=== PATIENT | female | born 1955 | race Caucasian/White ===

== ENCOUNTER 2017-05-18 17:22 | Inpatient (IN) ==
[2017-05-18] MEDS ORDERED: 0.9 % Sodium Chloride 1,000 ML IVC ONE ×3 (17:42→19:13)
[2017-05-18] MEDS ORDERED: *HR* FentaNYL (PF) 100 MCG/2 ML VIAL IVP ONE ×3 (17:42→21:33)
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
[2017-05-18 18:16] LABS: Basophils % 0.2 %; Hematocrit 41.6 % (35.3-44.9); Immature Granulocytes % 0.2 % (0-4); Lymphocytes # 1.6 K/mcL (0.6-4.6); Mean Corpuscular HGB Conc 33.7 g/dL (31.6-35.5); Mean Corpuscular Hemoglobin 30.4 pg (28.0-33.3); Mean Corpuscular Volume 90.4 fL (83.0-100.0); Mean Platelet Volume 10.3 fL (9.4-12.4); Monocytes # 0.7 K/mcL (0.0-1.3); Monocytes % 4.1 %; Neutrophils # 14.9 K/mcL (1.6-8.9); Platelet Count 231 K/mcL (140-400); Red Cell Distribution Width 12.9 % (11.5-14.5); Segmented Neutrophils % 86.5 %
[2017-05-18 18:37] LABS: Calcium 9.3 mg/dL (8.6-10.8); Potassium 3.6 mEq/L (3.5-4.5)
--- NOTE | 2017-05-18 18:56 | Emergency Department Note ---
Disposition Clinical Impression: Shoulder pain Disposition: Still a Patient Referrals: NONE,PCP [Primary Care Provider] - General Adult HPI - General Chief complaint: ED Extremity Injury, Upper Stated complaint: R arm injury Time Seen by Provider: 05/18/17 17:29 Source: patient Mode of arrival: ambulatory Limitations: no limitations Nursing Notes Reviewed: Yes Vital Signs Reviewed: Yes - History of Present Illness HPI Narrative: 60-year-old female presenting with right arm pain. Patient reports that she has a long-standing history of right shoulder pain after multiple rotator cuff surgeries and shoulder replacements. States that she helped pick someone up off the ground yesterday and started getting pain. Also complaining of a red, swollen arm. Denies any fever, but states it hurts a lot. Denies any chest pain, shortness breath, abdominal pain. States she wants x-rays and pain meds Pain Scale: 10 - Related Data Home Medications Medication Instructions Recorded Confirmed Acetaminophen/Butalbital/Caffe 1 each PO Q6HR 03/14/15 03/14/15 [Fioricet] Alprazolam [Xanax] 1 mg PO TID 03/14/15 03/14/15 Citalopram [CeleXA] 40 mg PO DAILY 03/14/15 03/14/15 Hydrocodone/Acetaminophen [[place] 1 tab PO Q6H PRN 03/14/15 03/14/15 5-325 Tablet] Lisinopril/Hydrochlorothiazide 1 each PO DAILY 03/14/15 03/14/15 [Zestoretic 10-12.5 mg Tablet] Previous Rx's Medication Instructions Recorded Naproxen [EC-Naprosyn] 500 mg PO BID #10 tablet. 02/20/16 Hydrocodone/Acetaminophen [[place] 1 tab PO Q6H PRN #5 tab 06/12/16 5-325 Tablet] Allergies Allergy/AdvReac Type Severity Reaction Status Date / Time No Known Drug Allergies Allergy See Verified 05/18/17 17:27 Comments All systems ED: reviewed and negative except as stated. Constitutional: Denies: fever Cardiovascular: Denies: chest pain Gastrointestinal: Denies: vomiting Musculoskeletal: Reports: as per HPI Neurological: Denies: headache Past Medical History - Past Medical History Attestation: Yes The following information was validated with the patient. Source: patient Medical history: Reports: COPD, hypertension, migraine Surgical history: Reports: hysterectomy Psychiatric history: Reports: anxiety, depression - Social History Smoking Status: Current every day smoker Smokeless Tobacco Status: No Alcohol use: Reports: none Drug use: Reports: none Physical Exam - General Limitations: no limitations General appearance: alert, in no apparent distress, anxious - Head Head exam: atraumatic, normocephalic, normal inspection - ENT ENT exam: normal exam, normal oropharynx, mucous membranes moist - Neck Neck exam: Present: normal inspection, full ROM, trachea midline - Chest Chest inspection: Present: normal inspection, symmetric chest wall rise - Respiratory Respiratory exam: Present: normal lung sounds bilaterally - Cardiovascular Cardiovascular exam: Present: regular rate, normal rhythm, normal heart sounds - Abdominal Exam Abdominal exam: Present: soft, Non-Tender. Absent: tenderness, distention, guarding, rebound, rigidity - Expanded Upper Extremity Exam Shoulder exam: Present: normal inspection, full ROM, tenderness, swelling, erythema Arm exam: Present: normal inspection, full ROM, tenderness, swelling, erythema Elbow exam: Present: normal inspection, full ROM, tenderness, swelling, erythema Forearm/Wrist exam: Present: normal inspection, full ROM Hand exam: Present: normal inspection, full ROM Vascular exam: Normal: capillary refill, radial pulse - Expanded Lower Extremity Exam Hip/Pelvis exam: Present: pelvis stable - Neurological Exam Neurological exam: Present: alert, oriented X3 - Psychiatric Psychiatric exam: Present: normal affect, normal mood - Skin Skin exam: Present: warm, dry, intact, normal color, erythema (R arm ) Course Course Narrative: 61 -year-old female with right shoulder pain with multiple cervical surgeries. Looks like it could be infected. We will CT with IV contrast and get labs. She will be signed out to the oncoming nighttime team, Dr. Wiggins and Connor Vital Signs Temperature 97.4 F L 05/18/17 17:24 Pulse Rate 106 05/18/17 17:24 Respiratory Rate 14 05/18/17 17:24 Blood Pressure 92/55 05/18/17 17:24 O2 Sat by Pulse Oximetry 99 05/18/17 17:24 Temperature 97.4 F L 05/18/17 17:24 Pulse Rate 95 05/18/17 18:16 Respiratory Rate 20 05/18/17 18:16 Blood Pressure 91/50 05/18/17 18:16 O2 Sat by Pulse Oximetry 94 05/18/17 18:16 Oxygen Delivery Oxygen Delivery Room Air Medical Decision Making - Lab Data Result diagrams: 05/18/17 18:08 05/18/17 18:08 Lab Results 05/18/17 05/18/17 05/18/17 Range/Units 18:08 18:08 18:08 WBC 17.2 H (4.3-11.1) K/mcL RBC 4.60 (3.82-4.97) M/mcL Hgb 14.0 (11.5-15.4) g/dL Hct 41.6 (35.3-44.9) % MCV 90.4 (83.0-100.0) fL MCH 30.4 (28.0-33.3) pg MCHC 33.7 (31.6-35.5) g/dL RDW 12.9 (11.5-14.5) % Plt Count 231 (140-400) K/mcL MPV 10.3 (9.4-12.4) fL Immature Gran % 0.2 (0-4) % Seg Neutrophils % 86.5 % Lymphocytes % 9.0 % Monocytes % 4.1 % Eosinophils % 0.0 % Basophils % 0.2 % Neutrophils # 14.9 H (1.6-8.9) K/mcL Lymphocytes # 1.6 (0.6-4.6) K/mcL Monocytes # 0.7 (0.0-1.3) K/mcL Eosinophils # 0.0 (0.0-0.6) K/mcL Basophils # 0.0 (0.0-0.2) K/mcL ESR 56 H (0-15) mm/hr Sodium 136 (136-145) mEq/L Potassium 3.6 (3.5-4.5) mEq/L Chloride 96 L (98-109) mEq/L Carbon Dioxide 26 (19-29) mEq/L BUN 38 H (7-20) mg/dL Creatinine 3.56 H (0.57-1.11) mg/dL Est GFR ( Amer) 16 L (> 60) Est GFR (Non-Af Amer) 13 L (> 60) BUN/Creatinine Ratio 11 (6-26) Glucose 105 H (70-99) mg/dL Calculated Osmolality 291 (280-300) Lactic Acid (0.5-2.2) mmol/L Calcium 9.3 (8.6-10.8) mg/dL C-Reactive Protein 173 H (Less than 5) mg/L 05/18/17 Range/Units 18:08 WBC (4.3-11.1) K/mcL RBC (3.82-4.97) M/mcL Hgb (11.5-15.4) g/dL Hct (35.3-44.9) % MCV (83.0-100.0) fL MCH (28.0-33.3) pg MCHC (31.6-35.5) g/dL RDW (11.5-14.5) % Plt Count (140-400) K/mcL MPV (9.4-12.4) fL Immature Gran % (0-4) % Seg Neutrophils % % Lymphocytes % % Monocytes % % Eosinophils % % Basophils % % Neutrophils # (1.6-8.9) K/mcL Lymphocytes # (0.6-4.6) K/mcL Monocytes # (0.0-1.3) K/mcL Eosinophils # (0.0-0.6) K/mcL Basophils # (0.0-0.2) K/mcL ESR (0-15) mm/hr Sodium (136-145) mEq/L Potassium (3.5-4.5) mEq/L Chloride (98-109) mEq/L Carbon Dioxide (19-29) mEq/L BUN (7-20) mg/dL Creatinine (0.57-1.11) mg/dL Est GFR ( Amer) (> 60) Est GFR (Non-Af Amer) (> 60) BUN/Creatinine Ratio (6-26) Glucose (70-99) mg/dL Calculated Osmolality (280-300) Lactic Acid 1.5 (0.5-2.2) mmol/L Calcium (8.6-10.8) mg/dL C-Reactive Protein (Less than 5) mg/L
--- NOTE | 2017-05-18 19:40 | Emergency Department Note ---
Disposition Clinical Impression: STACY (acute kidney injury) Shoulder pain Qualifiers: Chronicity: acute Laterality: right Qualified Code(s): M25.511 - Pain in right shoulder Sepsis Qualifiers: Sepsis type: sepsis due to unspecified organism Qualified Code(s): A41.9 - Sepsis, unspecified organism Disposition: Admitted As Inpatient Condition: Undetermined Time of Disposition: 21:28 Extremity Problem HPI - General Chief complaint: ED Extremity Injury, Upper Stated complaint: R arm injury Time Seen by Provider: 05/18/17 17:29 Source: patient Mode of arrival: ambulatory Limitations: no limitations Nursing Notes Reviewed: Yes Vital Signs Reviewed: Yes - History of Present Illness HPI Narrative: 61-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 emergency department with concern for right upper extremity pain. The patient has had numerous of her shoulders as well as to her right shoulder unknown last one. Patient states that has been experiencing right upper shoulder pain after feeling a pop after lifting her family member. The patient denies any abdominal pain, chest pain, or urinary symptoms. Patient is noted to have a leukocytosis in the mildly hypotensive with a systolic blood pressure in the low 90s. The patient is mentating appropriately answer questions. She was received 3 L IV fluids and workup is still pending. Pt Subjective Complaint: extremity pain Consistency: constant, Worsening Injury Location: right, upper extremity Pain Scale: 10 Quality: burning Radiation: none Improves with: nothing Worsens with: nothing Associated symptoms: Reports: myalgias - Related Data Home Medications Medication Instructions Recorded Confirmed Acetaminophen/Butalbital/Caffe 1 each PO Q6HR 03/14/15 03/14/15 [Fioricet] Alprazolam [Xanax] 1 mg PO TID 03/14/15 03/14/15 Citalopram [CeleXA] 40 mg PO DAILY 03/14/15 03/14/15 Hydrocodone/Acetaminophen [[place] 1 tab PO Q6H PRN 03/14/15 03/14/15 5-325 Tablet] Lisinopril/Hydrochlorothiazide 1 each PO DAILY 03/14/15 03/14/15 [Zestoretic 10-12.5 mg Tablet] Previous Rx's Medication Instructions Recorded Naproxen [EC-Naprosyn] 500 mg PO BID #10 tablet. 02/20/16 Hydrocodone/Acetaminophen [[place] 1 tab PO Q6H PRN #5 tab 06/12/16 5-325 Tablet] Allergies Allergy/AdvReac Type Severity Reaction Status Date / Time No Known Drug Allergies Allergy See Verified 05/18/17 17:27 Comments All systems ED: reviewed and negative except as stated. Constitutional: Denies: fever Cardiovascular: Denies: chest pain Gastrointestinal: Denies: vomiting Musculoskeletal: Reports: as per HPI, arthralgia, myalgia Integumentary: Denies: rash Neurological: Denies: headache Past Medical History - Past Medical History Attestation: Yes The following information was validated with the patient. Source: patient Medical history: Reports: COPD, hypertension, migraine Surgical history: Reports: hysterectomy, orthopedic, other (Right shoulder) Psychiatric history: Reports: anxiety, depression - Social History Smoking Status: Current every day smoker Smokeless Tobacco Status: No Alcohol use: Reports: none Drug use: Reports: none Physical Exam Breast examination was performed due to a left axillary node on CT scan. Demonstrated no abnormalities on palpation of the left breast tissue. Left axillary node was palpated. - General Limitations: no limitations General appearance: alert, in no apparent distress, anxious - Head Head exam: atraumatic, normocephalic, normal inspection - Eye Eye exam: Present: normal appearance - ENT ENT exam: normal exam, normal oropharynx, mucous membranes moist - Neck Neck exam: Present: normal inspection - Chest Chest inspection: Present: normal inspection, symmetric chest wall rise - Respiratory Respiratory exam: Present: other (Coarse breath sounds) - Cardiovascular Cardiovascular exam: Present: normal rhythm, tachycardia, normal heart sounds - Abdominal Exam Abdominal exam: Present: soft, Non-Tender. Absent: tenderness, distention, guarding, rebound, rigidity - Extremities Exam Extremities exam: Present: full ROM, tenderness (Right shoulder and radiating distally with erythema associated with this. She has numerous scars associated with previous surgeries.) Course - Consultations Consultation #1: I spoke with Dr. Govea in orthopedics surgery after we received the results of further workup for patient's findings here in the emergency department. He had no further recommendations other than admit to the hospital service and he will see the patient. He agreed to plan of antibiotic care. Time: 21:14 Vital Signs Temperature 97.4 F L 05/18/17 17:24 Pulse Rate 106 05/18/17 17:24 Respiratory Rate 14 05/18/17 17:24 Blood Pressure 92/55 05/18/17 17:24 O2 Sat by Pulse Oximetry 99 05/18/17 17:24 Temperature 97.9 F 05/19/17 03:51 Pulse Rate 87 05/19/17 03:51 Respiratory Rate 17 05/19/17 03:51 Blood Pressure 93/54 05/19/17 03:51 O2 Sat by Pulse Oximetry 96 05/19/17 03:51 Oxygen Delivery Oxygen Delivery Room Air Extremity Problem, Nontraumati - MDM Narrative Medical decision making narrative: Workup here in the emergency department demonstrates a leukocytosis as well as an elevated CRP and ESR. Without any other etiology of the patient's pain, I am concerned about a infection of the patient's hardware. The patient was started on vancomycin and Zosyn. The patient will be admitted to the hospitalist service per Dr. Govea in orthopedics surgery. In addition and the patient does have a new AK I according to the patient. I do not have any previous renal function here at [facility] lab but I would go ahead and treat the patient has an STACY. We will admit the patient to the hospitalist service at this time. Accepted by Dr. Arnold. Humerus X-Ray 05/18/17 17:41 IMPRESSION: 1. No significant change compared to prior study. 2. 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 Stable lucency surrounding the humeral stem component, with a slightly expansile component surrounding the distal tip. Overall findings could represent sequela of loosening versus particle disease. Findings are grossly unchanged from the prior study 3. Otherwise no definite acute fracture subluxation identified. D/ / 05/18/2017 18:19:23 Henry Peng MD / bcarter Interpreting Provider: Henry Peng MD Shoulder X-Ray 05/18/17 17:41 IMPRESSION: 1. No significant change compared to prior study. 2. 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 Stable lucency surrounding the humeral stem component, with a slightly expansile component surrounding the distal tip. Overall findings could represent sequela of loosening versus particle disease. Findings are grossly unchanged from the prior study 3. Otherwise no definite acute fracture subluxation identified. D/ / 05/18/2017 18:19:23 Henry Peng MD / melanie Interpreting Provider: Henry Peng MD Upper Extremity CT 05/18/17 17:41 IMPRESSION: 1. Status post reverse ball and socket right total shoulder arthroplasty with mildly eccentrically located distal humeral component with surrounding lucency compatible with chronic loosening distally. These findings are not significantly changed when compared with previous exams. Of note there was a remote fracture at this site as seen on prior radiograph from May 01, 2014. The fracture has healed. No acute periprosthetic fracture identified. 2. Within limits of the exam no organized subcutaneous fluid collection identified. Only minimal subcutaneous stranding. 3. Nonspecific mildly enlarged and partially calcified left axillary lymph nodes. Recommend correlation for any known breast malignancy as well as correlation with recent mammography to exclude the possibility of underlying malignancy. 4. Osteopenia. D/ / Osman Alva MD / Osman Alva MD Interpreting Provider: Osman Alva MD Chest X-Ray 05/18/17 18:52 IMPRESSION: No acute cardiopulmonary disease. D/ / José Miguel Pollock MD / José Miguel Pollock MD Interpreting Provider: José Miguel Pollock MD - Lab Data Lab results reviewed: Yes I reviewed the patient's lab results. Result diagrams: 05/19/17 03:39 05/19/17 03:39 Lab Results 05/18/17 05/18/17 05/18/17 Range/Units 18:08 18:08 18:08 WBC 17.2 H (4.3-11.1) K/mcL RBC 4.60 (3.82-4.97) M/mcL Hgb 14.0 (11.5-15.4) g/dL Hct 41.6 (35.3-44.9) % MCV 90.4 (83.0-100.0) fL MCH 30.4 (28.0-33.3) pg MCHC 33.7 (31.6-35.5) g/dL RDW 12.9 (11.5-14.5) % Plt Count 231 (140-400) K/mcL MPV 10.3 (9.4-12.4) fL Immature Gran % 0.2 (0-4) % Seg Neutrophils % 86.5 % Lymphocytes % 9.0 % Monocytes % 4.1 % Eosinophils % 0.0 % Basophils % 0.2 % Neutrophils # 14.9 H (1.6-8.9) K/mcL Lymphocytes # 1.6 (0.6-4.6) K/mcL Monocytes # 0.7 (0.0-1.3) K/mcL Eosinophils # 0.0 (0.0-0.6) K/mcL Basophils # 0.0 (0.0-0.2) K/mcL ESR 56 H (0-15) mm/hr PT (9.4-12.1) Seconds INR APTT (26.0-36.0) Seconds Sodium 136 (136-145) mEq/L Potassium 3.6 (3.5-4.5) mEq/L Chloride 96 L (98-109) mEq/L Carbon Dioxide 26 (19-29) mEq/L BUN 38 H (7-20) mg/dL Creatinine 3.56 H (0.57-1.11) mg/dL Est GFR ( Amer) 16 L (> 60) Est GFR (Non-Af Amer) 13 L (> 60) BUN/Creatinine Ratio 11 (6-26) Glucose 105 H (70-99) mg/dL Calculated Osmolality 291 (280-300) Lactic Acid (0.5-2.2) mmol/L Calcium 9.3 (8.6-10.8) mg/dL Phosphorus (2.3-4.7) mg/dL Magnesium (1.6-2.6) mg/dL Total Bilirubin (0.2-1.2) mg/dL Direct Bilirubin (0.0-0.5) mg/dL Indirect Bilirubin (0.0-1.2) mg/dL AST (5-34) Units/L ALT (0-55) Units/L Alkaline Phosphatase (38-126) Units/L Troponin I (0-0.03) ng/mL C-Reactive Protein 173 H (Less than 5) mg/L Serum Total Protein (6.0-8.3) g/dL Albumin (3.5-5.0) g/dL Globulin (2.4-3.5) g/dL Albumin/Globulin Ratio (1.1-2.2) Urine Color (Yellow) Urine Clarity (Clear) Urine pH (5.0-8.0) pH Units Ur Specific [place] (1.010-1.025) Urine Protein (Neg-Trace) mg/dL Urine Glucose (UA) (Normal) mg/dL Urine Ketones (Negative) mg/dL Urine Blood (Negative) Urine Nitrite (Negative) Urine Bilirubin (Negative) Urine Urobilinogen (Normal) mg/dL Ur Leukocyte Esterase (Negative) Urine Microscopic RBC (0-3) per hpf Urine Microscopic WBC (0-3) per hpf Ur Squamous Epith Cells (None-Few) per lpf Ur Renal Epithelial Cell (None-Few) per hpf Urine Bacteria (None-Few) per hpf Hyaline Casts (None-Few) per lpf WBC Casts (None Seen) per lpf Urine Mucus (Few) Urine Yeast (None Seen) per hpf Ur Culture Indicated? (NO) 05/18/17 05/18/17 05/18/17 Range/Units 18:08 20:06 20:06 WBC (4.3-11.1) K/mcL RBC (3.82-4.97) M/mcL Hgb (11.5-15.4) g/dL Hct (35.3-44.9) % MCV (83.0-100.0) fL MCH (28.0-33.3) pg MCHC (31.6-35.5) g/dL RDW (11.5-14.5) % Plt Count (140-400) K/mcL MPV (9.4-12.4) fL Immature Gran % (0-4) % Seg Neutrophils % % Lymphocytes % % Monocytes % % Eosinophils % % Basophils % % Neutrophils # (1.6-8.9) K/mcL Lymphocytes # (0.6-4.6) K/mcL Monocytes # (0.0-1.3) K/mcL Eosinophils # (0.0-0.6) K/mcL Basophils # (0.0-0.2) K/mcL ESR (0-15) mm/hr PT 12.2 H (9.4-12.1) Seconds INR 1.1 APTT 16.6 L (26.0-36.0) Seconds Sodium (136-145) mEq/L Potassium (3.5-4.5) mEq/L Chloride (98-109) mEq/L Carbon Dioxide (19-29) mEq/L BUN (7-20) mg/dL Creatinine (0.57-1.11) mg/dL Est GFR ( Amer) (> 60) Est GFR (Non-Af Amer) (> 60) BUN/Creatinine Ratio (6-26) Glucose (70-99) mg/dL Calculated Osmolality (280-300) Lactic Acid 1.5 (0.5-2.2) mmol/L Calcium (8.6-10.8) mg/dL Phosphorus 4.9 H (2.3-4.7) mg/dL Magnesium 1.4 L (1.6-2.6) mg/dL Total Bilirubin 0.3 (0.2-1.2) mg/dL Direct Bilirubin 0.2 (0.0-0.5) mg/dL Indirect Bilirubin 0.1 (0.0-1.2) mg/dL AST 26 (5-34) Units/L ALT 41 (0-55) Units/L Alkaline Phosphatase 77 (38-126) Units/L Troponin I (0-0.03) ng/mL C-Reactive Protein (Less than 5) mg/L Serum Total Protein 6.2 (6.0-8.3) g/dL Albumin 2.8 L (3.5-5.0) g/dL Globulin 3.4 (2.4-3.5) g/dL Albumin/Globulin Ratio 0.8 L (1.1-2.2) Urine Color (Yellow) Urine Clarity (Clear) Urine pH (5.0-8.0) pH Units Ur Specific [place] (1.010-1.025) Urine Protein (Neg-Trace) mg/dL Urine Glucose (UA) (Normal) mg/dL Urine Ketones (Negative) mg/dL Urine Blood (Negative) Urine Nitrite (Negative) Urine Bilirubin (Negative) Urine Urobilinogen (Normal) mg/dL Ur Leukocyte Esterase (Negative) Urine Microscopic RBC (0-3) per hpf Urine Microscopic WBC (0-3) per hpf Ur Squamous Epith Cells (None-Few) per lpf Ur Renal Epithelial Cell (None-Few) per hpf Urine Bacteria (None-Few) per hpf Hyaline Casts (None-Few) per lpf WBC Casts (None Seen) per lpf Urine Mucus (Few) Urine Yeast (None Seen) per hpf Ur Culture Indicated? (NO) 05/18/17 05/18/17 05/18/17 Range/Units 20:06 20:06 20:43 WBC (4.3-11.1) K/mcL RBC (3.82-4.97) M/mcL Hgb (11.5-15.4) g/dL Hct (35.3-44.9) % MCV (83.0-100.0) fL MCH (28.0-33.3) pg MCHC (31.6-35.5) g/dL RDW (11.5-14.5) % Plt Count (140-400) K/mcL MPV (9.4-12.4) fL Immature Gran % (0-4) % Seg Neutrophils % % Lymphocytes % % Monocytes % % Eosinophils % % Basophils % % Neutrophils # (1.6-8.9) K/mcL Lymphocytes # (0.6-4.6) K/mcL Monocytes # (0.0-1.3) K/mcL Eosinophils # (0.0-0.6) K/mcL Basophils # (0.0-0.2) K/mcL ESR (0-15) mm/hr PT (9.4-12.1) Seconds INR APTT (26.0-36.0) Seconds Sodium (136-145) mEq/L Potassium (3.5-4.5) mEq/L Chloride (98-109) mEq/L Carbon Dioxide (19-29) mEq/L BUN (7-20) mg/dL Creatinine (0.57-1.11) mg/dL Est GFR ( Amer) (> 60) Est GFR (Non-Af Amer) (> 60) BUN/Creatinine Ratio (6-26) Glucose (70-99) mg/dL Calculated Osmolality (280-300) Lactic Acid 1.8 (0.5-2.2) mmol/L Calcium (8.6-10.8) mg/dL Phosphorus (2.3-4.7) mg/dL Magnesium (1.6-2.6) mg/dL Total Bilirubin (0.2-1.2) mg/dL Direct Bilirubin (0.0-0.5) mg/dL Indirect Bilirubin (0.0-1.2) mg/dL AST (5-34) Units/L ALT (0-55) Units/L Alkaline Phosphatase (38-126) Units/L Troponin I 0.01 (0-0.03) ng/mL C-Reactive Protein (Less than 5) mg/L Serum Total Protein (6.0-8.3) g/dL Albumin (3.5-5.0) g/dL Globulin (2.4-3.5) g/dL Albumin/Globulin Ratio (1.1-2.2) Urine Color Dark Yellow (Yellow) Urine Clarity Cloudy A (Clear) Urine pH 6.0 (5.0-8.0) pH Units Ur Specific [place] 1.024 (1.010-1.025) Urine Protein 30 H (Neg-Trace) mg/dL Urine Glucose (UA) Normal (Normal) mg/dL Urine Ketones Negative (Negative) mg/dL Urine Blood Negative (Negative) Urine Nitrite Negative (Negative) Urine Bilirubin Small H (Negative) Urine Urobilinogen Normal (Normal) mg/dL Ur Leukocyte Esterase Negative (Negative) Urine Microscopic RBC 3-5 H (0-3) per hpf Urine Microscopic WBC 30-50 H (0-3) per hpf Ur Squamous Epith Cells Many H (None-Few) per lpf Ur Renal Epithelial Cell Few (None-Few) per hpf Urine Bacteria Few (None-Few) per hpf Hyaline Casts Moderate H (None-Few) per lpf WBC Casts Few H (None Seen) per lpf Urine Mucus Few (Few) Urine Yeast Moderate H (None Seen) per hpf Ur Culture Indicated? NO (NO) - Radiology Data Radiology results reviewed: Yes I reviewed the patient's radiology results. - EKG Data EKG attestation: Yes I reviewed and interpreted this EKG. EKG results narrative: Heart rate 86 bpm. AK interval 195 ms. QTc 429 ms. Normal axis. Normal sinus rhythm. No ST elevation or ST depression noted. EKG similar appearance to EKG from 04/19/2013. Attestation Statement - Attestation Attestation: I examined this patient and my medical decision-making was reviewed with the Resident Physician. I agree with the documented findings, disposition and treatment plan as described except to the extent set forth below. Sepsis. Possibly related to previous shoulder repair. Chest x-ray, urinalysis shows no evidence of infection. Hemodynamics responded to IV fluid resuscitation. Broad -spectrum antibiotics were initiated. Discussed case on-call orthopedic surgeon. will admit for further evaluation. Patient stable at time of admission.
[2017-05-18] MEDS ORDERED: Piperacillin/Tazobactam 3.375 GM in D5% in Water 50 ML IVPB ONE (19:51)
[2017-05-18] MEDS ORDERED: Vancomycin 1,000 MG in D5% in Water 250 ML IVPB ONE (19:52)
[2017-05-18 20:23] LABS: INR 1.1; Prothrombin Time 12.2 Seconds (9.4-12.1)
[2017-05-18 20:32] LABS: Activated Partial Thrombo Time 16.6 Seconds (26.0-36.0)
[2017-05-18 20:34] LABS: Albumin 2.8 g/dL (3.5-5.0); Albumin/Globulin Ratio 0.8 (1.1-2.2); Bilirubin,Direct 0.2 mg/dL (0.0-0.5); Bilirubin,Indirect 0.1 mg/dL (0.0-1.2); Bilirubin,Total 0.3 mg/dL (0.2-1.2); Globulin 3.4 g/dL (2.4-3.5); Magnesium 1.4 mg/dL (1.6-2.6); Phosphorous 4.9 mg/dL (2.3-4.7); Total Protein 6.2 g/dL (6.0-8.3)
[2017-05-18 20:48] LABS: Bilirubin,Urine Small (Negative); Blood,Urine Negative (Negative); Clarity,Urine Cloudy (Clear); Color,Urine Dark Yellow (Yellow); Glucose,Urine (UA) Normal (Normal); Ketones,Urine Negative (Negative); Leukocyte Esterase,Urine Negative (Negative); Nitrite,Urine Negative (Negative); Protein,Urine 30 mg/dL (Neg-Trace); Specific Gravity,Urine 1.024 (1.010-1.025); Urobilinogen,Urine Normal (Normal)
[2017-05-18 20:50] LABS: Squamous Epithelial Cell,Urine Many per lpf (None-Few); WBC,Urine 30-50 per hpf (0-3)
[2017-05-18 21:07] LABS: Hyaline Casts,Urine Moderate per lpf (None-Few); Mucus,Urine Few (Few); Renal Epithelial Cells,Urine Few per hpf (None-Few); White Blood Cell Casts,Urine Few per lpf (None Seen)
[2017-05-18 21:08] LABS: Yeast,Urine Moderate per hpf (None Seen)
[2017-05-18 21:09] LABS: Bacteria,Urine Few per hpf (None-Few)
[2017-05-18] MEDS ORDERED: Ondansetron 4 MG/2 ML VIAL IVP PRN (22:43)
[2017-05-18] MEDS ORDERED: Naloxone 0.4 MG/ML INJ IVP PRN (22:43)
[2017-05-18] MEDS ORDERED: Vancomycin 1,000 MG in D5% in Water 250 ML IVPB SCH (23:00)
[2017-05-18] MEDS: 0.9 % Sodium Chloride 1,000 ML IVC SCH (23:08)
--- NOTE | 2017-05-18 23:52 | Internal Med History&Physical ---
Date of Encounter: 05/18/17 Time of Encounter: 21:00 Assessment and Plan (1) Sepsis Current visit: Yes Status: Acute Patient meets sepsis criteria with tachycardia and leukocytosis. Suspect hardware infection. - IV fluid resuscitation started from ER - Lactic acid level is not elevated - Continue Vanco and Zosyn - Follow blood culture results She is at high risk because she is on Vanco, need close monitoring Qualifiers: Sepsis type: sepsis due to unspecified organism Qualified Code(s): A41.9 - Sepsis, unspecified organism (2) Hypomagnesemia Current visit: Yes Status: Acute Will give supplement (3) Axillary adenopathy Current visit: Yes Status: Acute CT shows a left sided axillary adenopathy, recommend mammogram. Mammogram ordered. (4) UTI (urinary tract infection) Current visit: Yes Status: Acute Pt is on Vanco and Zosyn. Follow urine culture results Qualifiers: Urinary tract infection type: acute cystitis Hematuria presence: without hematuria Qualified Code(s): N30.00 - Acute cystitis without hematuria (5) Shoulder pain Current visit: Yes Status: Acute Etiology is undetermined. CT shoulder has been done, will further reviewed by orthopedics. Concern for hardware infection. Empirically started Vanco and Zosyn. Follow blood culture results. Pain medication as needed Qualifiers: Chronicity: acute Laterality: right Qualified Code(s): M25.511 - Pain in right shoulder (6) STACY (acute kidney injury) Current visit: Yes Status: Acute Patient has high creatinine level. No previous result can be compared. Patient is on NSAID as a home medication. - We will place patient on IV fluid - US renal to rule out hydronephrosis. - Check urine sodium, creatinine, potassium, chloride, and eosiniphils - Avoid nephrotoxic medication. Hold lisinopril and hydrochlorothiazide. - Follow renal function. - Probably need nephrology consult, nonurgent, day shift to call. (7) DVT prophylaxis Current visit: Yes Status: Acute Heparin subcutaneously Internal Medicine - H&P: HPI Chief complaint: Right arm pain Admitted From: Home Plans for Post Hospital Care: Home History of present illness: Ms. Silverman is a 61 year old female with no significant medical history except migraine and right shoulder surgery with hardware implant, present to ER for right arm pain. Patient had a surgery 4-5 years ago, has on and off chronic pain. Patient said yesterday morning, when she tried to help her stepfather, her stepfather sit on her right arm. Patient has extreme pain and limited range of movement. She came to ER for treatment. In ER, she was found leukocytosis, hardware infection was suspected by emergency room. Patient was started on Vanco and Zosyn. Orthopedic consult was called by ER. Patient was admitted for further management. Past Med Surg Social Fam HX - Past Medical History Medical history: COPD, hypertension, migraine Psychiatric history: anxiety, depression - Past Surgical History Surgical History: hysterectomy, orthopedic, other - Social History Smoking Status: Current every day smoker Packs per day: 1/2 Smokeless Tobacco Status: No Alcohol use: none Drug use: none - Family History Mother History Unknown: Yes Internal Medicine - H&P: Meds Acetaminophen/Butalbital/Caffe [Fioricet] 1 each PO Q6HR 03/14/15 [History] Alprazolam [Xanax] 1 mg PO TID 03/14/15 [History] Citalopram [CeleXA] 40 mg PO DAILY 03/14/15 [History] Hydrocodone/Acetaminophen [[place] 5-325 Tablet] 1 tab PO Q6H PRN 03/14/15 [ History] Lisinopril/Hydrochlorothiazide [Zestoretic 10-12.5 mg Tablet] 1 each PO DAILY [History] Naproxen [EC-Naprosyn] 500 mg PO BID #10 tablet. 02/20/16 [Rx] Hydrocodone/Acetaminophen [[place] 5-325 Tablet] 1 tab PO Q6H PRN #5 tab 06/12/16 [Rx] 3 Allergy/AdvReac Type Severity Reaction Status Date / Time No Known Drug Allergies Allergy See Verified 05/18/17 17:27 Comments All Systems PM: A 10-system review of systems was performed and is negative for pertinent findings except as documented above in the HPI. - Constitutional Vitals: Temp Pulse Resp BP Pulse Ox 97.7 F 94 17 93/44 98 05/18/17 22:59 05/18/17 22:59 05/18/17 22:59 05/18/17 22:59 05/18/17 22:59 General appearance: Present: mild distress, A&O X 3, answers questions appropriately - Head Head exam: Present: atraumatic, normocephalic - Eye Eye exam: Present: PERRL, conjuntiva pink, sclera anicteric Pupils: Present: PERRL - Neck Neck exam general surgery: Present: supple, trachea midline. Absent: lymphadenopathy - Respiratory Respiratory exam: Present: CTAB. Absent: accessory muscle use, rales, rhonchi, wheezes - Cardiovascular Cardiovascular exam: Present: RRR, +S1, +S2. Absent: diastolic murmur, gallop, rubs, systolic murmur - GI/Abdominal GI/Abdominal exam: Present: normal bowel sounds, soft, no peritoneal signs. Absent: distended, tenderness - Extremities Exam Extremities exam: Present: warm, radial pulses palpable and symmetrical. Absent : calf tenderness, cyanotic, pedal edema Additional comments: Right hamerus tenderness with limited ROM due to pain. - Neurological Exam Neurological exam: Present: CN II-XII intact, oriented X3, no focal deficits. Absent: pronater drift, facial droop, speech deficit - Skin Skin exam: Present: dry, intact Internal Med - H&P Results - Labs CBC & Chem 7: 05/18/17 18:08 05/18/17 18:08
[2017-05-18] MEDS ORDERED: Magnesium Sulfate 2 GM in D5% in Water 100 ML IVPB ONE (23:58)
[2017-05-19] MEDS: *HR* Morphine 2 MG/ML SYRINGE IVP PRN ×6 (00:55→22:13)
[2017-05-19] MEDS: Acetaminophen 325 MG TABLET PO PRN ×3 (02:58→22:54)
[2017-05-19 03:58] LABS: Potassium,Urine 23.8 mEq/L
[2017-05-19 04:06] LABS: Basophils % 0.2 %; Hematocrit 33.2 % (35.3-44.9); Immature Granulocytes % 0.4 % (0-4); Lymphocytes # 1.5 K/mcL (0.6-4.6); Lymphocytes % 11.8 %; Mean Corpuscular HGB Conc 33.4 g/dL (31.6-35.5); Mean Corpuscular Hemoglobin 30.5 pg (28.0-33.3); Mean Corpuscular Volume 91.2 fL (83.0-100.0); Mean Platelet Volume 10.5 fL (9.4-12.4); Monocytes # 0.8 K/mcL (0.0-1.3); Monocytes % 6.3 %; Neutrophils # 10.1 K/mcL (1.6-8.9); Platelet Count 146 K/mcL (140-400); Red Blood Count 3.64 M/mcL (3.82-4.97); Segmented Neutrophils % 81.3 %
[2017-05-19 04:07] LABS: Hemoglobin 11.1 g/dL (11.5-15.4)
[2017-05-19 04:17] LABS: Magnesium 2.3 mg/dL (1.6-2.6); Potassium 3.2 mEq/L (3.5-4.5)
[2017-05-19 04:19] LABS: Calcium 7.9 mg/dL (8.6-10.8)
[2017-05-19] MEDS: *HR* Heparin 5,000 UNIT/ML VIAL SQ SCH ×2 (06:21→17:59)
--- NOTE | 2017-05-19 07:55 | Orthopedic Consult Note ---
Date of Encounter: 05/19/17 Time of Encounter: 07:53 History of Present Illness HPI: Ms. Silverman is a 61 year old female Seen this morning for right arm pain. Patient admitted with elevated white count and ESR and CRP. Patient with a long history of multiple surgeries of the right arm last being a major reconstruction with almost complete replacement of her humerus. Physical exam patient awake and oriented Complains of pain right arm Right upper extremity Well-healed incisions No significant swelling No erythema Neurovascular intact Pain with motion X-rays reviewed show chronic nature of reconstruction unchanged from previous x- rays. CT scan shows no collection or abscess. Patient is responding to IV antibiotics would recommend continued IV antibiotics before proceeding with any major revision surgery since this would leave her with a flail arm. There are no new changes nor collection suggesting of new process or abscess. Patient's pain may be related to loose prosthesis. Past Med Surg Social Fam HX - Past Medical History Medical history: COPD, hypertension, migraine Psychiatric history: anxiety, depression - Past Surgical History Surgical History: hysterectomy, orthopedic, other (Right shoulder) - Social History Smoking Status: Current every day smoker Packs per day: 1/2 Smokeless Tobacco Status: No Alcohol use: none Drug use: none - Family History Mother History Unknown: Yes Medications and Allergies Acetaminophen/Butalbital/Caffe [Fioricet] 1 each PO Q6HR 03/14/15 [History] Alprazolam [Xanax] 1 mg PO TID 03/14/15 [History] Citalopram [CeleXA] 40 mg PO DAILY 03/14/15 [History] Hydrocodone/Acetaminophen [[place] 5-325 Tablet] 1 tab PO Q6H PRN 03/14/15 [ History] Lisinopril/Hydrochlorothiazide [Zestoretic 10-12.5 mg Tablet] 1 each PO DAILY [History] Naproxen [EC-Naprosyn] 500 mg PO BID #10 tablet. 02/20/16 [Rx] Hydrocodone/Acetaminophen [[place] 5-325 Tablet] 1 tab PO Q6H PRN #5 tab 06/12/16 [Rx] 3 Allergy/AdvReac Type Severity Reaction Status Date / Time No Known Drug Allergies Allergy See Verified 05/18/17 17:27 Comments All Systems Reviewed: A 10-system review of systems was performed and is negative for pertinent findings except as documented above in the HPI. Physical Exam - Constitutional Vitals: Temp Pulse Resp BP Pulse Ox 98.1 F 88 16 109/65 96 05/19/17 07:25 05/19/17 07:25 05/19/17 07:25 05/19/17 07:25 05/19/17 07:25 Results - Labs Result Diagrams: 05/19/17 03:39 05/19/17 03:39 Labs: Abnormal lab results WBC 12.5 K/mcL (4.3-11.1) H 05/19/17 03:39 RBC 3.64 M/mcL (3.82-4.97) L 05/19/17 03:39 Hgb 11.1 g/dL (11.5-15.4) L D 05/19/17 03:39 Hct 33.2 % (35.3-44.9) L 05/19/17 03:39 Neutrophils # 10.1 K/mcL (1.6-8.9) H 05/19/17 03:39 ESR 56 mm/hr (0-15) H 05/18/17 18:08 PT 12.2 Seconds (9.4-12.1) H 05/18/17 20:06 APTT 16.6 Seconds (26.0-36.0) L 05/18/17 20:06 Sodium 134 mEq/L (136-145) L 05/19/17 03:39 Potassium 3.2 mEq/L (3.5-4.5) L 05/19/17 03:39 BUN 33 mg/dL (7-20) H 05/19/17 03:39 Creatinine 2.17 mg/dL (0.57-1.11) H 05/19/17 03:39 Est GFR ( Amer) 28 (> 60) L 05/19/17 03:39 Est GFR (Non-Af Amer) 23 (> 60) L 05/19/17 03:39 Calcium 7.9 mg/dL (8.6-10.8) L D 05/19/17 03:39 Phosphorus 4.9 mg/dL (2.3-4.7) H 05/18/17 20:06 C-Reactive Protein 173 mg/L (Less than 5) H 05/18/17 18:08 Albumin 2.8 g/dL (3.5-5.0) L 05/18/17 20:06 Albumin/Globulin Ratio 0.8 (1.1-2.2) L 05/18/17 20:06 Urine Clarity Cloudy (Clear) A 05/18/17 20:43 Urine Protein 30 mg/dL (Neg-Trace) H 05/18/17 20:43 Urine Bilirubin Small (Negative) H 05/18/17 20:43 Urine Microscopic RBC 3-5 per hpf (0-3) H 05/18/17 20:43 Urine Microscopic WBC 30-50 per hpf (0-3) H 05/18/17 20:43 Ur Squamous Epith Cells Many per lpf (None-Few) H 05/18/17 20:43 Hyaline Casts Moderate per lpf (None-Few) H 05/18/17 20:43 WBC Casts Few per lpf (None Seen) H 05/18/17 20:43 Urine Yeast Moderate per hpf (None Seen) H 05/18/17 20:43 H & H 05/19/17 Range/Units 03:39 Hgb 11.1 L D (11.5-15.4) g/dL Hct 33.2 L (35.3-44.9) % All other labs normal. Consult Discharge Plan - Plan Referrals: NONE,PCP [Primary Care Provider] -
[2017-05-19] MEDS: Piperacillin/Tazobactam 3.375 GM in D5% in Water 50 ML IVPB SCH ×2 (10:23→20:29)
[2017-05-19] MEDS: ALPRAZolam 1 MG TABLET PO PRN ×2 (12:29→20:24)
--- NOTE | 2017-05-19 13:09 | Electrocardiograph Report ---
[place] [id number] Test Date: 2017-05-18 Pat Name: Em Silverman Department: 104 Room: 2A42 Gender: F [employer]el[employer]writer: SUBHASH : 1955 Requested By: Chacha Alaniz Order Number: [id number] Reading MD: Linda Monique Measurements Intervals [place] Rate: 86 P: 61 VA: 195 QRS: 47 QRSD: 90 T: 44 QT: 385 QTc: 429 Interpretive Statements SINUS RHYTHM DIFFUSE NONSPECIFIC ST ABNORMALITIES Electronically Signed On 05-19-2017 12:44:12 EST by Linda Monique
[2017-05-19] MEDS ORDERED: Vancomycin 1,000 MG in D5% in Water 250 ML IVPB ONE (13:15)
[2017-05-19] MEDS: *HR* HYDROcodone/Acet 5/325 mg TABLET PO PRN ×2 (14:23→20:24)
[2017-05-19] MEDS: 0.9 % Sodium Chloride 1,000 ML IVC SCH (14:29)
[2017-05-19] MEDS: Nicotine 21 MG PATCH.TD24 TD SCH (15:39)
--- NOTE | 2017-05-19 17:26 | Internal Med Progress Note ---
Date of Encounter: 05/19/17 Time of Encounter: 17:24 - Assessment and plan (1) Sepsis Current Visit: Yes Status: Acute Assessment and plan: Does meet sepsis criteria concerned for septic arthritis / hardware infection of rt shoulder ESR- 56, CRP-173 - significnatly elevated cont empirical abx Zosyn and Vanco Ortho on board..since her symptoms started improving Ortho recommend close monitoring Pt does need to stay in the hospital more than 2 nights, due to her complex medical problems and required IV abx, frequent IV pain medication. SO will change her to full admission. I did review my colleague Dr. Arnold's H & P including HPI, PMH, PSH, FH - reviewed no gout, no malignancy in the family, SH , ROS no changes noticed Qualifiers: Sepsis type: sepsis due to unspecified organism Qualified Code(s): A41.9 - Sepsis, unspecified organism (2) Shoulder pain Current Visit: Yes Status: Acute Assessment and plan: due to possible hardware inf cont empirical abx inc pain meds Qualifiers: Chronicity: acute Laterality: right Qualified Code(s): M25.511 - Pain in right shoulder (3) STACY (acute kidney injury) Current Visit: Yes Status: Acute Assessment and plan: Due to sepsis improving cont gentle IV fluids (4) DVT prophylaxis Current Visit: Yes Status: Acute Assessment and plan: on Heparin SQ (5) UTI (urinary tract infection) Current Visit: Yes Status: Acute Assessment and plan: on abx f/u on urine cx Qualifiers: Urinary tract infection type: acute cystitis Hematuria presence: without hematuria Qualified Code(s): N30.00 - Acute cystitis without hematuria (6) Swelling of joint, wrist, left Current Visit: Yes Status: Acute Assessment and plan: concerned for gout cont pain medication appreciate Ortho in put on this - Subjective Interval history: Ms. Silverman is a 61 year old female with no significant medical history except migraine and right shoulder surgery with hardware implant, present to ER for right arm pain. Patient had a surgery 4-5 years ago, has on and off chronic pain. Patient said yesterday morning, when she tried to help her stepfather, her stepfather sit on her right arm. Patient has extreme pain and limited range of movement. She came to ER for treatment. In ER, she was found leukocytosis, hardware infection was suspected by emergency room. Patient was started on Vanco and Zosyn. Pt stated she is feeling better now. However still in severe pain in Rt shoulder. No erythema / no swelling - Constitutional Vitals: Temp Pulse Resp BP Pulse Ox 98.1 F 86 17 127/64 95 05/19/17 16:48 05/19/17 16:48 05/19/17 16:48 05/19/17 16:48 05/19/17 16:48 General appearance: Present: mild distress (with pain), A&O X 3, answers questions appropriately - Head Head exam: Present: atraumatic, normal inspection - Neck Neck exam general surgery: Present: supple - Respiratory Respiratory exam: Present: decreased breath sounds. Absent: rales, respiratory distress, rhonchi, wheezes - Cardiovascular Cardiovascular exam: Present: RRR, +S1, +S2. Absent: diastolic murmur, gallop, rubs, systolic murmur - GI/Abdominal GI/Abdominal exam: Present: normal bowel sounds, soft. Absent: rebound, rigid, tenderness - Extremities Exam Extremities exam: Absent: calf tenderness, pedal edema, tenderness Additional comments: Severe pain in Rt shoulder.. No erythema / no redness.. chronic scars from previous surgeries Also noticed swelling over left wrist - Back Exam Back exam: Absent: CVA tenderness (L), CVA tenderness (R) - Neurological Exam Neurological exam: Present: alert, oriented X3 - Psychiatric Psychiatric exam: Present: normal affect, normal mood Internal Medicine: Result - Labs CBC & Chem 7: 05/19/17 03:39 05/19/17 03:39 Labs: Short CBC 05/19/17 Range/Units 03:39 WBC 12.5 H (4.3-11.1) K/mcL Hgb 11.1 L D (11.5-15.4) g/dL Hct 33.2 L (35.3-44.9) % Plt Count 146 (140-400) K/mcL Neutrophils # 10.1 H (1.6-8.9) K/mcL BMP 05/19/17 03:39 Sodium 134 L Potassium 3.2 L Chloride 104 Carbon Dioxide 21 BUN 33 H Creatinine 2.17 H Glucose 97 Calcium 7.9 L D - ABG Interpretation ABG results: PT/INR, D-dimer PT 12.2 Seconds (9.4-12.1) H 05/18/17 20:06 - Impressions Impressions Retroperitoneum Ultrasound 05/19/17 15:00 IMPRESSION: Unremarkable ultrasound of the kidneys. D/ / 05/19/2017 16:05:24 Daisy Sosa MD / luna Interpreting Provider: Daisy Sosa MD Consult Discharge Plan - Plan Referrals: Candelario Govea MD [Partnered Physician] - 05/27/17 8:55 am (Please follow up as schedule..)
[2017-05-19] MEDS ORDERED: 0.9 % Sodium Chloride 1,000 ML IVC SCH (17:45)
[2017-05-19] MEDS: Gabapentin 100 MG CAPSULE PO SCH (20:25)
[2017-05-20] MEDS: *HR* HYDROcodone/Acet 5/325 mg TABLET PO PRN ×5 (01:30→23:07)
[2017-05-20] MEDS: *HR* Morphine 2 MG/ML SYRINGE IVP PRN ×5 (04:01→20:26)
[2017-05-20] MEDS: *HR* Heparin 5,000 UNIT/ML VIAL SQ SCH ×2 (05:46→17:18)
[2017-05-20 06:21] LABS: Basophils % 0.1 %; Hematocrit 32.4 % (35.3-44.9); Hemoglobin 10.8 g/dL (11.5-15.4); Immature Granulocytes % 0.3 % (0-4); Lymphocytes # 1.3 K/mcL (0.6-4.6); Lymphocytes % 16.8 %; Mean Corpuscular HGB Conc 33.3 g/dL (31.6-35.5); Mean Corpuscular Hemoglobin 30.4 pg (28.0-33.3); Mean Corpuscular Volume 91.3 fL (83.0-100.0); Mean Platelet Volume 11.2 fL (9.4-12.4); Monocytes # 0.7 K/mcL (0.0-1.3); Monocytes % 8.8 %; Neutrophils # 5.9 K/mcL (1.6-8.9); Platelet Count 153 K/mcL (140-400); Red Blood Count 3.55 M/mcL (3.82-4.97); Red Cell Distribution Width 12.9 % (11.5-14.5)
[2017-05-20 06:28] LABS: BUN/Creatinine Ratio 19 (6-26); Calcium 8.6 mg/dL (8.6-10.8); Carbon Dioxide 24 mEq/L (19-29); Chloride 107 mEq/L (98-109); Glucose 87 mg/dL (70-99); Osmolality,Calculated 283 (280-300); Potassium 3.6 mEq/L (3.5-4.5); Sodium 137 mEq/L (136-145); eGFR For African Americans > 60 (> 60); eGFR For Non-African Americans > 60 (> 60)
[2017-05-20 06:29] LABS: Blood Urea Nitrogen 13 mg/dL (7-20)
[2017-05-20 06:55] LABS: C-Reactive Protein 118 mg/L (Less than 5)
[2017-05-20] MEDS: ALPRAZolam 1 MG TABLET PO PRN ×3 (08:50→20:25)
[2017-05-20] MEDS: Gabapentin 100 MG CAPSULE PO SCH ×3 (08:51→20:25)
[2017-05-20] MEDS: Nicotine 21 MG PATCH.TD24 TD SCH (08:59)
[2017-05-20] MEDS: Piperacillin/Tazobactam 3.375 GM in D5% in Water 50 ML IVPB SCH ×2 (09:01→15:38)
[2017-05-20] MEDS: Vancomycin 1,000 MG in D5% in Water 250 ML IVPB SCH ×2 (12:33→22:53)
[2017-05-20] MEDS: Acetaminophen 325 MG TABLET PO PRN (14:31)
[2017-05-21] MEDS: Piperacillin/Tazobactam 3.375 GM in D5% in Water 50 ML IVPB SCH ×3 (00:42→15:08)
[2017-05-21] MEDS: *HR* Morphine 2 MG/ML SYRINGE IVP PRN ×3 (00:45→09:08)
[2017-05-21] MEDS: *HR* HYDROcodone/Acet 5/325 mg TABLET PO PRN ×3 (03:59→19:53)
[2017-05-21] MEDS: *HR* Heparin 5,000 UNIT/ML VIAL SQ SCH ×2 (04:54→16:39)
[2017-05-21 05:15] LABS: Basophils % 0.3 %; Hemoglobin 10.9 g/dL (11.5-15.4); Immature Granulocytes % 0.1 % (0-4); Lymphocytes # 1.8 K/mcL (0.6-4.6); Lymphocytes % 25.3 %; Mean Corpuscular Hemoglobin 30.1 pg (28.0-33.3); Mean Corpuscular Volume 91.2 fL (83.0-100.0); Monocytes # 0.6 K/mcL (0.0-1.3); Monocytes % 9.2 %; Neutrophils # 4.5 K/mcL (1.6-8.9); Platelet Count 165 K/mcL (140-400); Red Blood Count 3.62 M/mcL (3.82-4.97); Red Cell Distribution Width 12.6 % (11.5-14.5); Segmented Neutrophils % 65.1 %
[2017-05-21 05:24] LABS: BUN/Creatinine Ratio 17 (6-26); Blood Urea Nitrogen 11 mg/dL (7-20); Calcium 8.7 mg/dL (8.6-10.8); Carbon Dioxide 28 mEq/L (19-29); Chloride 105 mEq/L (98-109); Glucose 89 mg/dL (70-99); Osmolality,Calculated 285 (280-300); Potassium 3.7 mEq/L (3.5-4.5); Sodium 138 mEq/L (136-145); eGFR For African Americans > 60 (> 60); eGFR For Non-African Americans > 60 (> 60)
[2017-05-21] MEDS: Nicotine 21 MG PATCH.TD24 TD SCH (07:58)
[2017-05-21] MEDS: Acetaminophen 325 MG TABLET PO PRN (07:59)
[2017-05-21] MEDS: ALPRAZolam 1 MG TABLET PO PRN ×3 (07:59→19:55)
[2017-05-21] MEDS: Gabapentin 100 MG CAPSULE PO SCH ×3 (08:00→19:53)
--- NOTE | 2017-05-21 11:28 | Internal Med Progress Note ---
Date of Encounter: 05/20/17 Time of Encounter: 11:25 - Assessment and plan (1) Shoulder pain Current Visit: Yes Status: Acute Assessment and plan: due to possible hardware inf cont empirical abx inc pain meds Qualifiers: Chronicity: acute Laterality: right Qualified Code(s): M25.511 - Pain in right shoulder (2) STACY (acute kidney injury) Current Visit: Yes Status: Acute Assessment and plan: Due to sepsis improving cont gentle IV fluids (3) Sepsis Current Visit: Yes Status: Acute Assessment and plan: Does meet sepsis criteria concerned for septic arthritis / hardware infection of rt shoulder ESR- 56, CRP-173 - significnatly elevated cont empirical abx Zosyn and Vanco Ortho on board..since her symptoms started improving Ortho recommend close monitoring Pt does need to stay in the hospital more than 2 nights, due to her complex medical problems and required IV abx, frequent IV pain medication. SO will change her to full admission. I did review my colleague Dr. Arnold's H & P including HPI, PMH, PSH, FH - reviewed no gout, no malignancy in the family, SH , ROS no changes noticed Qualifiers: Sepsis type: sepsis due to unspecified organism Qualified Code(s): A41.9 - Sepsis, unspecified organism (4) DVT prophylaxis Current Visit: Yes Status: Acute Assessment and plan: on Heparin SQ (5) UTI (urinary tract infection) Current Visit: Yes Status: Acute Assessment and plan: on abx f/u on urine cx Qualifiers: Urinary tract infection type: acute cystitis Hematuria presence: without hematuria Qualified Code(s): N30.00 - Acute cystitis without hematuria - Subjective Interval history: no acute events - Constitutional Vitals: Temp Pulse Resp BP Pulse Ox 98.2 F 92 16 148/76 92 05/21/17 10:20 05/21/17 10:20 05/21/17 10:20 05/21/17 10:20 05/21/17 10:20 General appearance: Present: mild distress (with pain), A&O X 3, answers questions appropriately Exam: - Head Head exam: Present: atraumatic, normal inspection - Neck Neck exam general surgery: Present: supple - Respiratory Respiratory exam: Present: decreased breath sounds. Absent: rales, respiratory distress, rhonchi, wheezes - Cardiovascular Cardiovascular exam: Present: RRR, +S1, +S2. Absent: diastolic murmur, gallop, rubs, systolic murmur - GI/Abdominal GI/Abdominal exam: Present: normal bowel sounds, soft. Absent: rebound, rigid, tenderness - Extremities Exam Extremities exam: Absent: calf tenderness, pedal edema, tenderness Additional comments: Severe pain in Rt shoulder.. No erythema / no redness.. chronic scars from previous surgeries Also noticed swelling over left wrist - Back Exam Back exam: Absent: CVA tenderness (L), CVA tenderness (R) - Neurological Exam Neurological exam: Present: alert, oriented X3 - Psychiatric Psychiatric exam: Present: normal affect, normal mood Internal Medicine: Result - Labs CBC & Chem 7: 05/21/17 04:22 05/21/17 04:22 Labs: Short CBC 05/21/17 Range/Units 04:22 WBC 6.9 (4.3-11.1) K/mcL Hgb 10.9 L (11.5-15.4) g/dL Hct 33.0 L (35.3-44.9) % Plt Count 165 (140-400) K/mcL Neutrophils # 4.5 (1.6-8.9) K/mcL BMP 05/21/17 04:22 Sodium 138 Potassium 3.7 Chloride 105 Carbon Dioxide 28 BUN 11 Creatinine 0.66 Glucose 89 Calcium 8.7 - ABG Interpretation ABG results: PT/INR, D-dimer PT 12.2 Seconds (9.4-12.1) H 05/18/17 20:06 Consult Discharge Plan - Plan Referrals: Candelario Govea MD [Partnered Physician] - 05/27/17 8:55 am (Please follow up as schedule..)
[2017-05-21] MEDS ORDERED: Lidocaine 1% 20 ML MDV INFILT ONE (11:29)
--- NOTE | 2017-05-21 11:43 | Discharge Summary ---
Date of Encounter: 05/21/17 Time of Encounter: 11:31 - Discharge Diagnosis (1) Sepsis Priority: Primary Status: Resolved Qualifiers: Sepsis type: sepsis due to unspecified organism Qualified Code(s): A41.9 - Sepsis, unspecified organism (2) Shoulder pain Priority: Secondary Status: Acute Qualifiers: Chronicity: acute Laterality: right Qualified Code(s): M25.511 - Pain in right shoulder (3) STACY (acute kidney injury) Priority: Secondary Status: Resolved (4) DVT prophylaxis Priority: Secondary Status: Acute (5) UTI (urinary tract infection) Priority: Secondary Status: Acute Qualifiers: Urinary tract infection type: acute cystitis Hematuria presence: without hematuria Qualified Code(s): N30.00 - Acute cystitis without hematuria - Discharge Medications Prescriptions: OxyCODONE Immed Rel [Roxicodone 5 MG] 7.5 mg PO Q6HR PRN #28 tablet PRN Reason: Severe Pain (7-10) Piperacillin/Tazobactam [Zosyn] 3.375 gm IVPB Q8HR #63 vial Vancomycin [Vancocin] 1,000 mg IV Q12HR #42 vial Bisacodyl [Dulcolax] 5 mg PO DAILY #30 tablet Home Medications: Acetaminophen/Butalbital/Caffe [Fioricet] 1 each PO Q6HR 03/14/15 [History] Alprazolam [Xanax] 1 mg PO TID 03/14/15 [History] Citalopram [CeleXA] 40 mg PO DAILY 03/14/15 [History] Lisinopril/Hydrochlorothiazide [Zestoretic 10-12.5 mg Tablet] 1 each PO DAILY [History] Buspirone HCl [Buspar] 10 mg PO BID 05/19/17 [History] Cyanocobalamin (Vitamin B-12) [Vitamin B12] 1,000 mcg PO DAILY 05/19/17 [History ] Gabapentin [Neurontin] 100 mg PO TID 05/19/17 [History] Multivitamin [One Daily Essential] 1 tab PO DAILY 05/19/17 [History] Bisacodyl [Dulcolax] 5 mg PO DAILY #30 tablet 05/21/17 [Rx] Nicotine Patch [Nicoderm] 21 mg TD DAILY patch.td24 05/21/17 [Rx] OxyCODONE Immed Rel [Roxicodone 5 MG] 7.5 mg PO Q6HR PRN #28 tablet 05/21/17 [Rx ] Piperacillin/Tazobactam [Zosyn] 3.375 gm IVPB Q8HR #63 vial 05/21/17 [Rx] Vancomycin [Vancocin] 1,000 mg IV Q12HR #42 vial 05/21/17 [Rx] Allergies/Adverse Reactions: 3 Allergy/AdvReac Type Severity Reaction Status Date / Time No Known Drug Allergies Allergy See Verified 05/18/17 17:27 Comments Date of admission: 05/19/17 17:18 Primary care physician: PCP NONE Consults: 05/21/17 11:29 Consult to Invasive Line Access Team [CONS] Routine Reason for Consult: Picc Line Insertion Line Type: PICC PICC line indications: intermediate Med/Antibiotic Discharging clinician: Arthur Anderson - Patient Status Disposition: Home Health Service Condition: Undetermined Functional capacity at discharge: independent ambulation Overall status at discharge: patient is progressing back to baseline - Discharge Instructions Follow Up With: Candelario Govea MD [Partnered Physician] - 05/27/17 8:55 am (Please follow up as schedule..) - Diet and Activity Activity: increase activity as tolerated Diet: advance to your usual diet Hospital course: Mrs. Silverman is a 61-year-old female with no significant past medical history except for migraines and right shoulder surgery with hardware implant. She presented to the ER for right arm pain. She had of surgery 4-5 years ago with on and off chronic pain. The day prior to admission she was trying to help her stepfather and there was some trauma to her right arm. She has limited range of motion and came to the ER for treatment she was found to have leukocytosis, with hardware infection. Started on vancomycin and Zosyn. Orthopedics was consult to by the ER. She was admitted for sepsis, interior was positive for tachycardia and leukocytosis and source of hardware infection. She was started on IV fluid resuscitation, continued on vancomycin and Zosyn. An blood cultures were obtained prior to antibiotics. Lactic acid was normal. She had acute kidney injury and was continued on IV fluid and monitor. She had lisinopril and hydrochlorothiazide held at this time because of renal function. Trees reviewed and showed chronic nature of reconstruction changes from previous x-rays. A CT showed no collection or abscess. She responded to IV antibodies well and so she was continued on this. There is no indication for emergent surgery. Her acute kidney injury did improve with gentle IV fluid hydration. He remained hemodynamically stable. Since initial white blood count was 17.2, and normalized after 2 days of treatment. Her renal function improved after 2 days of IV fluid. Patient overall was treated for 3 days with improvement of sepsis. Blood cultures were obtained and are no growth to date at this time. Orthopedics agrees with medical management and to follow patient as outpatient while continuing vancomycin and Zosyn. She is to follow-up with Ortho in one week, until then antibiotics Vanco and Zosyn will be prescribed for 3 weeks. - Time Spent with Patient Total time spent providing and/or coordinating discharge services: - Constitutional Vitals: Temp Pulse Resp BP Pulse Ox 98.2 F 92 16 148/76 92 05/21/17 10:20 05/21/17 10:20 05/21/17 10:20 05/21/17 10:20 05/21/17 10:20 General appearance: Present: mild distress (with pain), A&O X 3, answers questions appropriately Exam: - Head Head exam: Present: atraumatic, normal inspection - Neck Neck exam general surgery: Present: supple - Respiratory Respiratory exam: Present: decreased breath sounds. Absent: rales, respiratory distress, rhonchi, wheezes - Cardiovascular Cardiovascular exam: Present: RRR, +S1, +S2. Absent: diastolic murmur, gallop, rubs, systolic murmur - GI/Abdominal GI/Abdominal exam: Present: normal bowel sounds, soft. Absent: rebound, rigid, tenderness - Extremities Exam Extremities exam: Absent: calf tenderness, pedal edema, tenderness Additional comments: Severe pain in Rt shoulder.. No erythema / no redness.. chronic scars from previous surgeries Also noticed swelling over left wrist - Back Exam Back exam: Absent: CVA tenderness (L), CVA tenderness (R) - Neurological Exam Neurological exam: Present: alert, oriented X3 - Psychiatric Psychiatric exam: Present: normal affect, normal mood
--- NOTE | 2017-05-21 12:00 | Physician Discharge Referral ---
Home Health/Hosp Referral Info Transfer to: Home Health Provider in Charge Post Discharge: PCP - Diagnosis (1) Sepsis Priority: Primary Status: Resolved (2) Shoulder pain Priority: Secondary Status: Acute (3) STACY (acute kidney injury) Priority: Secondary Status: Resolved (4) DVT prophylaxis Priority: Secondary Status: Acute (5) UTI (urinary tract infection) Priority: Secondary Status: Acute - Respiratory Orders Smoking Cessation: Smoking cessation has been advised. For more information, call the [place] Tobacco Quit Line at 3-954-XPWH-NOW. - Diet/Nutrition Diet/Nutrition Orders: Regular - Activity Activity Orders: Up ad gloria - Services Needed Following services are medically necessary services: Home Infusion - Transfer Medications Prescriptions: OxyCODONE Immed Rel [Roxicodone 5 MG] 7.5 mg PO Q6HR PRN #28 tablet PRN Reason: Severe Pain (7-10) Piperacillin/Tazobactam [Zosyn] 3.375 gm IVPB Q8HR #63 vial Vancomycin [Vancocin] 1,000 mg IV Q12HR #42 vial Bisacodyl [Dulcolax] 5 mg PO DAILY #30 tablet Home Medications: Acetaminophen/Butalbital/Caffe [Fioricet] 1 each PO Q6HR 03/14/15 [History] Alprazolam [Xanax] 1 mg PO TID 03/14/15 [History] Citalopram [CeleXA] 40 mg PO DAILY 03/14/15 [History] Lisinopril/Hydrochlorothiazide [Zestoretic 10-12.5 mg Tablet] 1 each PO DAILY [History] Buspirone HCl [Buspar] 10 mg PO BID 05/19/17 [History] Cyanocobalamin (Vitamin B-12) [Vitamin B12] 1,000 mcg PO DAILY 05/19/17 [History ] Gabapentin [Neurontin] 100 mg PO TID 05/19/17 [History] Multivitamin [One Daily Essential] 1 tab PO DAILY 05/19/17 [History] Bisacodyl [Dulcolax] 5 mg PO DAILY #30 tablet 05/21/17 [Rx] Nicotine Patch [Nicoderm] 21 mg TD DAILY patch.[id number] 05/21/17 [Rx] OxyCODONE Immed Rel [Roxicodone 5 MG] 7.5 mg PO Q6HR PRN #28 tablet 05/21/17 [Rx ] Piperacillin/Tazobactam [Zosyn] 3.375 gm IVPB Q8HR #63 vial 05/21/17 [Rx] Vancomycin [Vancocin] 1,000 mg IV Q12HR #42 vial 05/21/17 [Rx] Allergies/Adverse Reactions: 3 Allergy/AdvReac Type Severity Reaction Status Date / Time No Known Drug Allergies Allergy See Verified 05/18/17 17:27 Comments Certification: Further, I certify that my clinical findings support that this patient is homebound (i.e. absences from home require considerable and taxing effort and are for medical reasons or [employer] services or infrequently or short duration when for other reasons) because: Homebound Reason: Patient requires assistance of a person or device to safely leave home Attestation: My signature below is to certify that this patient is under my care and that I, or nurse practitioner, or a physician's insurance underwriting assistant working with me, has a face-to -face encounter with this patient.
[2017-05-21] MEDS: Vancomycin 1,000 MG in D5% in Water 250 ML IVPB SCH (12:30)
[2017-05-21] MEDS: *HR* OxyCODONE Immed Rel 5 MG TABLET PO PRN ×2 (12:32→16:33)
[2017-05-21] MEDS ORDERED: FLUARIX QUAD 2017-18 36MOS UP/PF 0.5 ML SYRINGE IM ONE (15:30)
[2017-05-21 16:08] VITALS: BP 142/80
[2017-05-21] MEDS ORDERED: Aminoglycoside Consult 1 EACH MC ONE (20:18)
== END 2017-05-21 20:19 | disposition home health service (06) | DRG 720 ==
LOC: 2ANU 17:22 → EMEROO 17:22 → 2ANU 22:48
PROVIDERS: ADMIT Internal Medicine; ATTEND Family Medicine

== ENCOUNTER 2022-02-17 14:26 | Inpatient (IN) ==
[2022-02-17] MEDS ORDERED: Metoclopramide 10 MG/2 ML VIAL IVP ONE (16:36)
[2022-02-17] MEDS ORDERED: Morphine Sulfate 2 MG/ML SYRINGE IVP ONE ×2 (16:36→21:18)
[2022-02-17 17:13] LABS: Hematocrit 47.2 % (35.3-44.9); Hemoglobin 15.9 g/dL (11.5-15.4); Mean Corpuscular HGB Conc 33.7 g/dL (31.6-35.5); Red Cell Distribution Width 13.2 % (11.5-14.5)
[2022-02-17 17:15] LABS: Immature Platelets 10.2 % (1.1-6.1); Mean Corpuscular Hemoglobin 30.2 pg (28.0-33.3); Mean Corpuscular Volume 89.7 fL (83.0-100.0); Mean Platelet Volume 11.3 fL (9.4-12.4); Platelet Count 142 K/mcL (140-400); Red Blood Count 5.26 M/mcL (3.82-4.97); White Blood Count 15.7 K/mcL (4.3-11.1)
[2022-02-17 17:29] LABS: INR 1.2; Prothrombin Time 13.2 Seconds (9.4-12.1)
[2022-02-17 17:35] LABS: Albumin 3.7 g/dL (3.5-5.7); Albumin/Globulin Ratio 1.1 (1.1-2.2); Bilirubin,Direct 0.8 mg/dL (0.0-0.2); Bilirubin,Indirect 0.9 mg/dL (0.0-1.0); Bilirubin,Total 1.7 mg/dL (0.3-1.0); Calcium 9.4 mg/dL (8.6-10.3); Globulin 3.4 g/dL (2.4-3.5); Potassium 3.2 mEq/L (3.5-5.1); Total Protein 7.1 g/dL (6.4-8.9)
[2022-02-17 17:36] LABS: Lymphocytes # 0.9 K/mcL (0.6-4.6); Monocytes # 1.3 K/mcL (0.0-1.3); Neutrophils # 12.9 K/mcL (1.6-8.9)
[2022-02-17 17:38] LABS: Large Platelets Present (Not Present); Smudge Cells Present (Not Present); Troponin I 0.04 ng/mL (< 0.04)
[2022-02-17] MEDS ORDERED: Iopamidol - 370 500 ML MLS IVP ONE (19:27)
[2022-02-17 20:42] LABS: Amorphous Sediment,Urine Few per hpf (None-Few); Bacteria,Urine Few per hpf (None-Few); Bilirubin,Urine Small (Negative); Blood,Urine Negative (Negative); Clarity,Urine Clear (Clear); Color,Urine Orange (Yellow); Glucose,Urine (UA) Normal (Normal); Hyaline Casts,Urine Few per lpf (None Seen); Ketones,Urine Trace mg/dL (Negative); Leukocyte Esterase,Urine Trace (Negative); Mucus,Urine Few per lpf (None-Few); Nitrite,Urine Negative (Negative); Protein,Urine 100 mg/dL (Neg-Trace); RBC,Urine 0-3 per hpf (0-3); Specific Gravity,Urine 1.029 (1.010-1.025); Squamous Epithelial Cell,Urine Few per hpf (None-Few)
[2022-02-17 20:48] LABS: Influenza A PCR Negative (Negative); Influenza B PCR Negative (Negative); Resp. Syncytial Virus PCR Negative (Negative); SARS-CoV-2 by PCR (In House) Negative (Negative)
[2022-02-17] MEDS ORDERED: Piperacillin/Tazobactam 3.375 GM in 0.9 % Sodium Chloride Mini Bag 100 ML IVPB ONE (21:45)
[2022-02-17] MEDS ORDERED: 0.9 % Sodium Chloride 1,000 ML IV ONE (22:21)
[2022-02-17] MEDS ORDERED: *HR* Heparin 5,000 UNIT/ML VIAL IVP ONE (23:07)
[2022-02-17] MEDS ORDERED: Naloxone 0.4 MG/ML INJ IVP PRN ×2 (23:07→23:16)
[2022-02-17] MEDS ORDERED: *HR* Heparin 5,000 UNIT/ML VIAL IVP PRN (23:07)
[2022-02-17] MEDS ORDERED: *HR* Labetalol 20 MG/4 ML SYRINGE IVP ONE (23:12)
[2022-02-17] MEDS ORDERED: Potassium Chloride Elixir 20 MEQ/15 ML UDC PO ONE (23:19)
[2022-02-18] MEDS: Melatonin 3 MG TABLET PO PRN (00:17)
[2022-02-18] MEDS: *HR* OxyCODONE Immed Rel 5 MG TABLET PO PRN ×2 (00:17→05:10)
[2022-02-18] MEDS: *HR* Metoprolol 5 MG/5 ML VIAL IVP PRN (00:38)
[2022-02-18] MEDS: Heparin 25,000UNIT/250ML 1/2NS 25,000 UNIT/250 ML IV.SOLN IVC SCH (00:41)
[2022-02-18 01:51] LABS: Magnesium 1.4 mg/dL (1.6-2.6); Phosphorous 3.9 mg/dL (2.7-4.5)
[2022-02-18 02:05] LABS: Thyroid Stimulating Hormone 0.623 mcIU/mL (0.340-5.600)
[2022-02-18] MEDS: *HR* HYDROcodone/Acet 5/325 mg TABLET PO PRN (02:07)
[2022-02-18] MEDS: 0.9 % Sodium Chloride 1,000 ML IVC SCH ×2 (03:49→12:14)
[2022-02-18] MEDS: Acetaminophen 325 MG TABLET PO PRN (04:04)
[2022-02-18 04:13] LABS: Hematocrit 39.4 % (35.3-44.9); Hemoglobin 13.3 g/dL (11.5-15.4); Immature Platelets 10.5 % (1.1-6.1); Mean Corpuscular HGB Conc 33.8 g/dL (31.6-35.5); Mean Corpuscular Hemoglobin 30.2 pg (28.0-33.3); Mean Corpuscular Volume 89.3 fL (83.0-100.0); Mean Platelet Volume 11.3 fL (9.4-12.4); Platelet Count 102 K/mcL (140-400); Red Blood Count 4.41 M/mcL (3.82-4.97); Red Cell Distribution Width 13.2 % (11.5-14.5); White Blood Count 12.9 K/mcL (4.3-11.1)
[2022-02-18] MEDS: Levalbuterol 1 PUFF INHALER IH SCH ×4 (04:13→23:18)
[2022-02-18 04:28] LABS: Albumin 2.7 g/dL (3.5-5.7); Albumin/Globulin Ratio 1.1 (1.1-2.2); Bilirubin,Direct 0.7 mg/dL (0.0-0.2); Bilirubin,Indirect 0.8 mg/dL (0.0-1.0); Bilirubin,Total 1.5 mg/dL (0.3-1.0); Calcium 8.1 mg/dL (8.6-10.3); Globulin 2.5 g/dL (2.4-3.5); Potassium 3.1 mEq/L (3.5-5.1); Total Protein 5.2 g/dL (6.4-8.9)
[2022-02-18] MEDS ORDERED: Potassium Chloride Elixir 20 MEQ/15 ML UDC PO ONE (04:46)
[2022-02-18 05:24] LABS: Lymphocytes # 0.5 K/mcL (0.6-4.6); Monocytes # 0.5 K/mcL (0.0-1.3); Neutrophils # 11.9 K/mcL (1.6-8.9); Platelet Estimate Decreased (Normal)
[2022-02-18 07:28] LABS: Creatinine,Urine 104 mg/dL; Protein/Creatinine Ratio,Urine 0.64 mg/mg (0.00-0.20); Sodium, Urine < 10.0 mEq/L
[2022-02-18 08:05] LABS: A.calcoaceticus-baumannii cplx Not Detected (Not Detect); Bacteroides fragilis by PCR Not Detected (Not Detect); Candida albicans by PCR Not Detected (Not Detect); Candida auris by PCR Not Detected (Not Detect); Candida glabrata by PCR Not Detected (Not Detect); Candida krusei by PCR Not Detected (Not Detect); Candida parapsilosis by PCR Not Detected (Not Detect); Candida tropicalis by PCR Not Detected (Not Detect); Crypto. neoformans/gattii PCR Not Detected (Not Detect); Enterobacter cloacae Cmplx PCR Not Detected (Not Detect); Enterobacterales by PCR Not Detected (Not Detect); Enterococcus faecalis by PCR Not Detected (Not Detect); Enterococcus faecium by PCR Not Detected (Not Detect); Escherichia coli by PCR Not Detected (Not Detect); Klebs. pneumoniae group by PCR Not Detected (Not Detect); Klebsiella aerogenes by PCR Not Detected (Not Detect); Klebsiella oxytoca by PCR Not Detected (Not Detect); Proteus by PCR Not Detected (Not Detect); Pseudomonas aeruginosa by PCR Not Detected (Not Detect); Salmonella species by PCR Not Detected (Not Detect); Serratia marcescens by PCR Not Detected (Not Detect); Staph epidermidis by PCR Not Detected (Not Detect); Staph lugdunensis by PCR Not Detected (Not Detect); Staphylococcus aureus by PCR Not Detected (Not Detect); Staphylococcus by PCR Not Detected (Not Detect); Stenotrophomonas maltophilia Not Detected (Not Detect); Streptococcus agalactiae(B)PCR Not Detected (Not Detect); Streptococcus pneumoniae PCR Not Detected (Not Detect); Streptococcus pyogenes (A) PCR DETECTED (Not Detect)
[2022-02-18] MEDS: cefTRIAXone 2,000 MG in 0.9 % Sodium Chloride 20 ML IVP SCH (09:14)
[2022-02-18 11:46] LABS: ABG Base Excess 1 mEq/L (-2 to 3); ABG HCO3 26 mEq/L (21-27); ABG Oxygen Saturation 97 % (95-98); ABG PCO2 43 mmHg (35-45); ABG PH 7.39 pH Units (7.32-7.45); ABG PO2 88 mmHg (85-104); ABG TCO2 27 mEq/L (20-26); Blood Gas FiO2 3.5 (1-15=lpm or21-100=%)
[2022-02-18] MEDS: *HR* Heparin 5,000 UNIT/ML VIAL IVP PRN (16:52)
[2022-02-18] MEDS: Clindamycin 900 MG/50 ML 900 MG/50 ML IV.SOLN IVPB SCH ×2 (16:53→23:56)
[2022-02-18] MEDS ORDERED: Ampicillin/Sulbactam 1,500 MG in 0.9 % Sodium Chloride Mini Bag 100 ML IVPB SCH (18:00)
[2022-02-19 02:14] LABS: Red Cell Distribution Width 13.5 % (11.5-14.5)
[2022-02-19 02:15] LABS: Hematocrit 42.9 % (35.3-44.9); Hemoglobin 14.3 g/dL (11.5-15.4); Immature Platelets 9.3 % (1.1-6.1); Lymphocytes # 0.3 K/mcL (0.6-4.6); Mean Corpuscular HGB Conc 33.3 g/dL (31.6-35.5); Mean Corpuscular Hemoglobin 30.6 pg (28.0-33.3); Mean Corpuscular Volume 91.7 fL (83.0-100.0); Mean Platelet Volume 11.5 fL (9.4-12.4); Platelet Count 101 K/mcL (140-400); Red Blood Count 4.68 M/mcL (3.82-4.97); White Blood Count 14.1 K/mcL (4.3-11.1)
[2022-02-19] MEDS: Heparin 25,000UNIT/250ML 1/2NS 25,000 UNIT/250 ML IV.SOLN IVC SCH ×2 (02:35→22:55)
[2022-02-19] MEDS: *HR* Heparin 5,000 UNIT/ML VIAL IVP PRN ×2 (02:36→14:12)
[2022-02-19 02:51] LABS: Monocytes # 0.6 K/mcL (0.0-1.3); Neutrophils # 13.3 K/mcL (1.6-8.9); Platelet Estimate Slight Decrease (Normal)
[2022-02-19 02:52] LABS: Toxic Vacuolation Present (Not Present)
[2022-02-19 02:56] LABS: Potassium 3.8 mEq/L (3.5-5.1)
[2022-02-19] MEDS ORDERED: Vancomycin 1,250 MG/262.5 ML IV.SOLN IVPB SCH (04:00)
[2022-02-19] MEDS: *HR* OxyCODONE Immed Rel 5 MG TABLET PO PRN (04:06)
[2022-02-19] MEDS: Levalbuterol 1 PUFF INHALER IH SCH ×4 (04:20→21:58)
[2022-02-19] MEDS: *HR* Metoprolol 5 MG/5 ML VIAL IVP PRN (05:21)
[2022-02-19] MEDS: cefTRIAXone 2,000 MG in 0.9 % Sodium Chloride 20 ML IVP SCH (09:27)
[2022-02-19] MEDS: Clindamycin 900 MG/50 ML 900 MG/50 ML IV.SOLN IVPB SCH ×3 (09:31→23:01)
[2022-02-19] MEDS: Tiotropium 10 INH DOSE IH SCH (11:08)
[2022-02-19] MEDS: Methadone Oral Concentrate 50 MG/5 ML UDC PO SCH (12:17)
[2022-02-19] MEDS: Acetaminophen 325 MG TABLET PO PRN (23:08)
[2022-02-19] MEDS: Penicillin G Potassium 4,000,000 UNIT in 0.9 % Sodium Chloride 100 ML IVPB SCH (23:55)
[2022-02-20] MEDS: Levalbuterol 1 PUFF INHALER IH SCH ×4 (04:10→22:59)
[2022-02-20] MEDS: Penicillin G Potassium 4,000,000 UNIT in 0.9 % Sodium Chloride 100 ML IVPB SCH ×5 (04:22→19:55)
[2022-02-20 05:12] LABS: Basophils % 0.2 %; Hematocrit 35.8 % (35.3-44.9); Immature Granulocytes % 0.5 % (0-4); Lymphocytes # 0.6 K/mcL (0.6-4.6); Lymphocytes % 4.7 %; Mean Corpuscular HGB Conc 33.5 g/dL (31.6-35.5); Mean Corpuscular Hemoglobin 29.9 pg (28.0-33.3); Mean Corpuscular Volume 89.1 fL (83.0-100.0); Mean Platelet Volume 12.2 fL (9.4-12.4); Monocytes # 0.6 K/mcL (0.0-1.3); Monocytes % 4.9 %; Neutrophils # 11.3 K/mcL (1.6-8.9); Platelet Count 102 K/mcL (140-400); Red Blood Count 4.02 M/mcL (3.82-4.97); Red Cell Distribution Width 13.4 % (11.5-14.5); Segmented Neutrophils % 89.7 %; White Blood Count 12.6 K/mcL (4.3-11.1)
[2022-02-20 05:28] LABS: C-Reactive Protein 208 mg/L (Less than 10); Creatine Kinase 59 Units/L (30-223)
[2022-02-20 05:30] LABS: Calcium 8.5 mg/dL (8.6-10.3); Potassium 3.2 mEq/L (3.5-5.1)
[2022-02-20] MEDS: Clindamycin 900 MG/50 ML 900 MG/50 ML IV.SOLN IVPB SCH ×2 (09:07→16:06)
[2022-02-20] MEDS: *HR* OxyCODONE Immed Rel 5 MG TABLET PO PRN ×2 (09:08→21:04)
[2022-02-20] MEDS: Methadone Oral Concentrate 50 MG/5 ML UDC PO SCH (09:09)
[2022-02-20] MEDS: Tiotropium 10 INH DOSE IH SCH (09:41)
[2022-02-20] MEDS: *HR* Heparin 5,000 UNIT/ML VIAL IVP PRN ×2 (13:03→20:31)
[2022-02-20] MEDS ORDERED: Gadolinium Contrast Agent (WT Based) IV PRN (19:04)
[2022-02-20] MEDS: Heparin 25,000UNIT/250ML 1/2NS 25,000 UNIT/250 ML IV.SOLN IVC SCH (20:30)
[2022-02-20] MEDS: Melatonin 3 MG TABLET PO PRN (21:04)
[2022-02-20] MEDS: *HR* HYDROcodone/Acet 5/325 mg TABLET PO PRN (23:38)
[2022-02-21] MEDS: Penicillin G Potassium 4,000,000 UNIT in 0.9 % Sodium Chloride 100 ML IVPB SCH ×6 (00:43→21:16)
[2022-02-21] MEDS: Clindamycin 900 MG/50 ML 900 MG/50 ML IV.SOLN IVPB SCH ×2 (00:44→08:33)
[2022-02-21] MEDS: *HR* OxyCODONE Immed Rel 5 MG TABLET PO PRN ×4 (03:15→20:13)
[2022-02-21 03:53] LABS: Mean Corpuscular HGB Conc 33.1 g/dL (31.6-35.5); Mean Corpuscular Hemoglobin 29.8 pg (28.0-33.3); Mean Platelet Volume 11.9 fL (9.4-12.4); Red Cell Distribution Width 13.7 % (11.5-14.5)
[2022-02-21 03:54] LABS: Hematocrit 40.8 % (35.3-44.9); Hemoglobin 13.5 g/dL (11.5-15.4); Immature Platelets 10.4 % (1.1-6.1); Mean Corpuscular Volume 90.1 fL (83.0-100.0); Red Blood Count 4.53 M/mcL (3.82-4.97); White Blood Count 9.5 K/mcL (4.3-11.1)
[2022-02-21] MEDS: Levalbuterol 1 PUFF INHALER IH SCH ×4 (04:02→23:03)
[2022-02-21 04:10] LABS: Calcium 8.8 mg/dL (8.6-10.3); Magnesium 1.4 mg/dL (1.6-2.6); Potassium 3.8 mEq/L (3.5-5.1)
[2022-02-21] MEDS: Methadone Oral Concentrate 50 MG/5 ML UDC PO SCH (08:34)
[2022-02-21] MEDS: Tiotropium 10 INH DOSE IH SCH (10:10)
[2022-02-21] MEDS: *HR* Heparin 5,000 UNIT/ML VIAL IVP PRN (14:48)
[2022-02-21] MEDS ORDERED: GADOBUTROL 30 MMOL/30 ML VIAL IVP ONE (15:49)
[2022-02-21] MEDS ORDERED: Haloperidol Lactate 5 MG/ML VIAL IVP ONE (20:09)
[2022-02-21] MEDS: Melatonin 3 MG TABLET PO PRN (20:13)
[2022-02-21] MEDS ORDERED: cloNIDine HCL 0.1 MG TABLET PO ONE (20:19)
[2022-02-22] MEDS: Penicillin G Potassium 4,000,000 UNIT in 0.9 % Sodium Chloride 100 ML IVPB SCH ×6 (00:12→20:07)
[2022-02-22 03:32] LABS: Basophils % 0.2 %; Hematocrit 36.2 % (35.3-44.9); Hemoglobin 12.2 g/dL (11.5-15.4); Lymphocytes # 0.9 K/mcL (0.6-4.6); Lymphocytes % 8.1 %; Mean Corpuscular HGB Conc 33.7 g/dL (31.6-35.5); Mean Corpuscular Hemoglobin 29.8 pg (28.0-33.3); Mean Corpuscular Volume 88.3 fL (83.0-100.0); Mean Platelet Volume 11.8 fL (9.4-12.4); Monocytes % 9.3 %; Neutrophils # 8.8 K/mcL (1.6-8.9); Platelet Count 109 K/mcL (140-400); Red Cell Distribution Width 13.2 % (11.5-14.5); Segmented Neutrophils % 81.4 %; White Blood Count 10.8 K/mcL (4.3-11.1)
[2022-02-22 03:36] LABS: BUN/Creatinine Ratio 29 (6-26); Blood Urea Nitrogen 17 mg/dL (8-23); Calcium 8.2 mg/dL (8.6-10.3); Carbon Dioxide 31 mEq/L (23-29); Chloride 93 mEq/L (98-107); Glucose 78 mg/dL (70-105); Osmolality,Calculated 274 (280-300); Potassium 2.9 mEq/L (3.5-5.1); Sodium 132 mEq/L (136-145)
[2022-02-22] MEDS: Levalbuterol 1 PUFF INHALER IH SCH ×4 (04:34→22:51)
[2022-02-22] MEDS: Heparin 25,000UNIT/250ML 1/2NS 25,000 UNIT/250 ML IV.SOLN IVC SCH (05:00)
[2022-02-22] MEDS: Methadone Oral Concentrate 50 MG/5 ML UDC PO SCH (09:07)
[2022-02-22] MEDS: *HR* OxyCODONE Immed Rel 5 MG TABLET PO PRN ×2 (09:08→19:56)
[2022-02-22] MEDS: *HR* Rivaroxaban 15 MG TABLET PO SCH ×2 (09:09→19:55)
[2022-02-22] MEDS ORDERED: *HR* LORazepam 0.5 MG TABLET PO ONE (09:39)
[2022-02-22] MEDS ORDERED: *HR* LORazepam 2 MG/ML VIAL IVP ONE ×2 (09:43→15:27)
[2022-02-22] MEDS ORDERED: *HR* LORazepam 2 MG/ML VIAL ONE (09:45)
[2022-02-22] MEDS: Tiotropium 10 INH DOSE IH SCH (10:34)
[2022-02-22] MEDS: QUEtiapine Fumarate 25 MG TABLET PO SCH (19:55)
[2022-02-22] MEDS: Melatonin 3 MG TABLET PO PRN (19:55)
[2022-02-22] MEDS ORDERED: QUEtiapine Fumarate 25 MG TABLET PO SCH (21:00)
[2022-02-23] MEDS: Penicillin G Potassium 4,000,000 UNIT in 0.9 % Sodium Chloride 100 ML IVPB SCH ×6 (01:04→20:55)
[2022-02-23] MEDS: Levalbuterol 1 PUFF INHALER IH SCH ×4 (04:25→22:59)
[2022-02-23] MEDS: *HR* OxyCODONE Immed Rel 5 MG TABLET PO PRN ×4 (04:33→23:56)
[2022-02-23 05:18] LABS: Basophils % 0.2 %; Eosinophils # 0.2 K/mcL (0.0-0.6); Eosinophils % 1.2 %; Hematocrit 39.6 % (35.3-44.9); Hemoglobin 13.2 g/dL (11.5-15.4); Lymphocytes # 1.6 K/mcL (0.6-4.6); Lymphocytes % 12.9 %; Mean Corpuscular HGB Conc 33.3 g/dL (31.6-35.5); Mean Corpuscular Hemoglobin 30.1 pg (28.0-33.3); Mean Corpuscular Volume 90.4 fL (83.0-100.0); Mean Platelet Volume 10.7 fL (9.4-12.4); Monocytes # 0.9 K/mcL (0.0-1.3); Monocytes % 6.8 %; Neutrophils # 9.7 K/mcL (1.6-8.9); Platelet Count 149 K/mcL (140-400); Red Blood Count 4.38 M/mcL (3.82-4.97); Red Cell Distribution Width 13.5 % (11.5-14.5); Segmented Neutrophils % 77.9 %; White Blood Count 12.5 K/mcL (4.3-11.1)
[2022-02-23 05:39] LABS: BUN/Creatinine Ratio 35 (6-26); Blood Urea Nitrogen 20 mg/dL (8-23); Calcium 8.8 mg/dL (8.6-10.3); Carbon Dioxide 33 mEq/L (23-29); Chloride 95 mEq/L (98-107); Glucose 82 mg/dL (70-105); Osmolality,Calculated 278 (280-300); Potassium 3.7 mEq/L (3.5-5.1); Sodium 133 mEq/L (136-145)
[2022-02-23] MEDS: QUEtiapine Fumarate 25 MG TABLET PO SCH (08:27)
[2022-02-23] MEDS: *HR* Rivaroxaban 15 MG TABLET PO SCH ×2 (08:27→20:56)
[2022-02-23] MEDS: Methadone Oral Concentrate 50 MG/5 ML UDC PO SCH (08:28)
[2022-02-23 08:52] LABS: Magnesium 1.4 mg/dL (1.6-2.6)
[2022-02-23] MEDS: Tiotropium 10 INH DOSE IH SCH (09:50)
[2022-02-23] MEDS: Melatonin 3 MG TABLET PO PRN (20:56)
[2022-02-23] MEDS ORDERED: QUEtiapine Fumarate 25 MG TABLET PO SCH (21:00)
[2022-02-23] MEDS: Albumin 25% 25gram/100mL 25 GM/100 ML IV.SOLN IVPB SCH (23:48)
[2022-02-24] MEDS: Penicillin G Potassium 4,000,000 UNIT in 0.9 % Sodium Chloride 100 ML IVPB SCH ×6 (00:33→21:09)
[2022-02-24] MEDS: Levalbuterol 1 PUFF INHALER IH SCH ×4 (04:20→23:02)
[2022-02-24 06:46] LABS: Basophils % 0.2 %; Hematocrit 37.4 % (35.3-44.9); Hemoglobin 12.4 g/dL (11.5-15.4); Immature Granulocytes % 0.9 % (0-4); Lymphocytes % 8.1 %; Mean Corpuscular HGB Conc 33.2 g/dL (31.6-35.5); Mean Corpuscular Hemoglobin 30.2 pg (28.0-33.3); Mean Corpuscular Volume 91.2 fL (83.0-100.0); Mean Platelet Volume 10.1 fL (9.4-12.4); Monocytes # 0.6 K/mcL (0.0-1.3); Neutrophils # 10.7 K/mcL (1.6-8.9); Platelet Count 170 K/mcL (140-400); Red Cell Distribution Width 13.4 % (11.5-14.5); Segmented Neutrophils % 85.8 %; White Blood Count 12.5 K/mcL (4.3-11.1)
[2022-02-24 07:08] LABS: BUN/Creatinine Ratio 25 (6-26); Blood Urea Nitrogen 15 mg/dL (8-23); Calcium 8.9 mg/dL (8.6-10.3); Carbon Dioxide 30 mEq/L (23-29); Chloride 97 mEq/L (98-107); Glucose 72 mg/dL (70-105); Magnesium 1.3 mg/dL (1.6-2.6); Osmolality,Calculated 273 (280-300); Potassium 3.8 mEq/L (3.5-5.1); Sodium 132 mEq/L (136-145); Troponin I 0.03 ng/mL (< 0.04)
[2022-02-24 07:21] LABS: Thyroid Stimulating Hormone 3.283 mcIU/mL (0.340-5.600)
[2022-02-24 07:27] LABS: C-Reactive Protein 119 mg/L (Less than 10)
[2022-02-24] MEDS: *HR* Rivaroxaban 15 MG TABLET PO SCH ×2 (08:37→21:09)
[2022-02-24] MEDS: Methadone Oral Concentrate 50 MG/5 ML UDC PO SCH (08:37)
[2022-02-24] MEDS: Tiotropium 10 INH DOSE IH SCH (09:24)
[2022-02-24] MEDS: Albumin 25% 25gram/100mL 25 GM/100 ML IV.SOLN IVPB SCH ×2 (09:35→16:22)
[2022-02-24] MEDS ORDERED: Haloperidol Lactate 5 MG/ML VIAL IVP ONE (11:28)
[2022-02-24] MEDS: Dexmedetomidine HCl 400 MCG/100 ML MLS IVC SCH (18:39)
[2022-02-24] MEDS: *HR* HYDROcodone/Acet 5/325 mg TABLET PO PRN (21:14)
[2022-02-25] MEDS: Penicillin G Potassium 4,000,000 UNIT in 0.9 % Sodium Chloride 100 ML IVPB SCH ×6 (01:37→20:36)
[2022-02-25 03:25] LABS: Basophils % 0.2 %; Hematocrit 39.7 % (35.3-44.9); Hemoglobin 13.1 g/dL (11.5-15.4); Immature Granulocytes % 0.5 % (0-4); Lymphocytes % 7.6 %; Mean Corpuscular Hemoglobin 29.6 pg (28.0-33.3); Mean Corpuscular Volume 89.8 fL (83.0-100.0); Mean Platelet Volume 9.9 fL (9.4-12.4); Monocytes # 0.8 K/mcL (0.0-1.3); Monocytes % 6.3 %; Neutrophils # 10.9 K/mcL (1.6-8.9); Platelet Count 208 K/mcL (140-400); Red Blood Count 4.42 M/mcL (3.82-4.97); Red Cell Distribution Width 13.1 % (11.5-14.5); Segmented Neutrophils % 85.4 %; White Blood Count 12.8 K/mcL (4.3-11.1)
[2022-02-25 03:42] LABS: BUN/Creatinine Ratio 21 (6-26); Blood Urea Nitrogen 13 mg/dL (8-23); Calcium 9.1 mg/dL (8.6-10.3); Carbon Dioxide 30 mEq/L (23-29); Chloride 95 mEq/L (98-107); Glucose 101 mg/dL (70-105); Magnesium 1.6 mg/dL (1.6-2.6); Osmolality,Calculated 276 (280-300); Potassium 3.5 mEq/L (3.5-5.1); Sodium 133 mEq/L (136-145)
[2022-02-25] MEDS: Levalbuterol 1 PUFF INHALER IH SCH ×4 (04:08→23:12)
[2022-02-25] MEDS: *HR* OxyCODONE Immed Rel 5 MG TABLET PO PRN ×2 (06:01→20:38)
[2022-02-25] MEDS: *HR* Rivaroxaban 15 MG TABLET PO SCH ×2 (08:25→20:32)
[2022-02-25] MEDS: Methadone Oral Concentrate 50 MG/5 ML UDC PO SCH (08:26)
[2022-02-25] MEDS: Tiotropium 10 INH DOSE IH SCH (10:58)
[2022-02-25] MEDS: lisinopriL 20 MG TABLET PO SCH (17:35)
[2022-02-25] MEDS: Dexmedetomidine HCl 400 MCG/100 ML MLS IVC SCH (17:35)
[2022-02-26] MEDS: Penicillin G Potassium 4,000,000 UNIT in 0.9 % Sodium Chloride 100 ML IVPB SCH ×6 (00:40→21:15)
[2022-02-26] MEDS: Levalbuterol 1 PUFF INHALER IH SCH ×4 (03:52→22:46)
[2022-02-26 05:06] LABS: Basophils % 0.2 %; Hematocrit 36.3 % (35.3-44.9); Hemoglobin 11.7 g/dL (11.5-15.4); Immature Granulocytes % 0.6 % (0-4); Lymphocytes # 1.2 K/mcL (0.6-4.6); Lymphocytes % 11.3 %; Mean Corpuscular HGB Conc 32.2 g/dL (31.6-35.5); Mean Corpuscular Hemoglobin 29.1 pg (28.0-33.3); Mean Corpuscular Volume 90.3 fL (83.0-100.0); Mean Platelet Volume 9.8 fL (9.4-12.4); Monocytes % 9.2 %; Neutrophils # 8.3 K/mcL (1.6-8.9); Platelet Count 249 K/mcL (140-400); Red Blood Count 4.02 M/mcL (3.82-4.97); Red Cell Distribution Width 13.2 % (11.5-14.5); Segmented Neutrophils % 78.7 %; White Blood Count 10.5 K/mcL (4.3-11.1)
[2022-02-26 05:27] LABS: BUN/Creatinine Ratio 27 (6-26); Blood Urea Nitrogen 17 mg/dL (8-23); Calcium 8.8 mg/dL (8.6-10.3); Carbon Dioxide 29 mEq/L (23-29); Chloride 97 mEq/L (98-107); Glucose 79 mg/dL (70-105); Magnesium 1.5 mg/dL (1.6-2.6); Osmolality,Calculated 272 (280-300); Potassium 3.5 mEq/L (3.5-5.1); Sodium 131 mEq/L (136-145)
[2022-02-26] MEDS: *HR* Rivaroxaban 15 MG TABLET PO SCH ×2 (08:04→21:16)
[2022-02-26] MEDS: lisinopriL 20 MG TABLET PO SCH ×3 (08:04→09:19)
[2022-02-26] MEDS: Methadone Oral Concentrate 50 MG/5 ML UDC PO SCH (08:04)
[2022-02-26] MEDS: *HR* HYDROcodone/Acet 5/325 mg TABLET PO PRN ×3 (08:04→21:16)
[2022-02-26] MEDS: Thiamine (B-1) 250 MG in 0.9 % Sodium Chloride 50 ML IVPB SCH ×3 (10:10→21:15)
[2022-02-26] MEDS: Tiotropium 10 INH DOSE IH SCH (10:19)
[2022-02-26] MEDS: *HR* OxyCODONE Immed Rel 5 MG TABLET PO PRN (12:09)
[2022-02-26] MEDS ORDERED: lisinopriL 20 MG TABLET PO STA (15:18)
[2022-02-26] MEDS ORDERED: Levalbuterol Neb 1.25 MG/3 ML ONE (20:13)
[2022-02-26] MEDS: Dexmedetomidine HCl 400 MCG/100 ML MLS IVC SCH (20:23)
[2022-02-26] MEDS ORDERED: Methyl Salicylate/Menthol 85 APPL/85 GM TUBE TP PRN (21:41)
[2022-02-27] MEDS: Acetaminophen 325 MG TABLET PO PRN ×3 (01:52→22:32)
[2022-02-27] MEDS: Melatonin 3 MG TABLET PO PRN ×2 (01:55→20:43)
[2022-02-27] MEDS: *HR* OxyCODONE Immed Rel 5 MG TABLET PO PRN ×3 (03:40→20:43)
[2022-02-27] MEDS: Levalbuterol 1 PUFF INHALER IH SCH ×4 (04:40→22:41)
[2022-02-27] MEDS: Penicillin G Potassium 4,000,000 UNIT in 0.9 % Sodium Chloride 100 ML IVPB SCH ×7 (06:03→23:54)
[2022-02-27 06:39] LABS: Basophils % 0.3 %; Hematocrit 32.8 % (35.3-44.9); Hemoglobin 10.6 g/dL (11.5-15.4); Immature Granulocytes % 0.6 % (0-4); Lymphocytes # 1.1 K/mcL (0.6-4.6); Lymphocytes % 14.8 %; Mean Corpuscular HGB Conc 32.3 g/dL (31.6-35.5); Mean Corpuscular Hemoglobin 29.5 pg (28.0-33.3); Mean Corpuscular Volume 91.4 fL (83.0-100.0); Mean Platelet Volume 9.7 fL (9.4-12.4); Monocytes # 0.7 K/mcL (0.0-1.3); Neutrophils # 5.5 K/mcL (1.6-8.9); Platelet Count 285 K/mcL (140-400); Red Blood Count 3.59 M/mcL (3.82-4.97); Red Cell Distribution Width 13.2 % (11.5-14.5); Segmented Neutrophils % 75.3 %; White Blood Count 7.2 K/mcL (4.3-11.1)
[2022-02-27 06:47] LABS: BUN/Creatinine Ratio 29 (6-26); Blood Urea Nitrogen 18 mg/dL (8-23); Calcium 8.8 mg/dL (8.6-10.3); Carbon Dioxide 29 mEq/L (23-29); Chloride 99 mEq/L (98-107); Glucose 94 mg/dL (70-105); Magnesium 1.7 mg/dL (1.6-2.6); Osmolality,Calculated 276 (280-300); Potassium 3.6 mEq/L (3.5-5.1); Sodium 132 mEq/L (136-145)
[2022-02-27] MEDS: *HR* Rivaroxaban 15 MG TABLET PO SCH ×2 (09:15→20:43)
[2022-02-27] MEDS: lisinopriL 20 MG TABLET PO SCH (09:15)
[2022-02-27] MEDS: Methadone Oral Concentrate 50 MG/5 ML UDC PO SCH (09:15)
[2022-02-27] MEDS: Tiotropium 10 INH DOSE IH SCH (09:23)
[2022-02-27] MEDS: Thiamine (B-1) 250 MG in 0.9 % Sodium Chloride 50 ML IVPB SCH ×3 (09:55→20:42)
[2022-02-27] MEDS: Nicotine 14 MG PATCH.TD24 TD SCH (10:13)
[2022-02-27] MEDS: Dexmedetomidine HCl 400 MCG/100 ML MLS IVC SCH (15:32)
[2022-02-27] MEDS: *HR* HYDROcodone/Acet 5/325 mg TABLET PO PRN (17:48)
[2022-02-27] MEDS ORDERED: *HR* LORazepam 0.5 MG TABLET PO ONE (22:18)
[2022-02-28] MEDS: Levalbuterol 1 PUFF INHALER IH SCH ×4 (04:04→20:50)
[2022-02-28] MEDS: Penicillin G Potassium 4,000,000 UNIT in 0.9 % Sodium Chloride 100 ML IVPB SCH ×3 (04:27→12:54)
[2022-02-28] MEDS: Acetaminophen 325 MG TABLET PO PRN (04:49)
[2022-02-28 05:18] LABS: Basophils % 0.2 %; Hematocrit 31.7 % (35.3-44.9); Hemoglobin 10.3 g/dL (11.5-15.4); Immature Granulocytes % 0.5 % (0-4); Lymphocytes # 1.2 K/mcL (0.6-4.6); Mean Corpuscular HGB Conc 32.5 g/dL (31.6-35.5); Mean Corpuscular Hemoglobin 29.6 pg (28.0-33.3); Mean Corpuscular Volume 91.1 fL (83.0-100.0); Mean Platelet Volume 9.6 fL (9.4-12.4); Monocytes # 0.7 K/mcL (0.0-1.3); Monocytes % 11.1 %; Neutrophils # 4.2 K/mcL (1.6-8.9); Platelet Count 311 K/mcL (140-400); Red Blood Count 3.48 M/mcL (3.82-4.97); Red Cell Distribution Width 13.4 % (11.5-14.5); Segmented Neutrophils % 68.2 %; White Blood Count 6.1 K/mcL (4.3-11.1)
[2022-02-28 05:38] LABS: BUN/Creatinine Ratio 27 (6-26); Blood Urea Nitrogen 19 mg/dL (8-23); Carbon Dioxide 28 mEq/L (23-29); Chloride 100 mEq/L (98-107); Glucose 80 mg/dL (70-105); Osmolality,Calculated 273 (280-300); Potassium 3.9 mEq/L (3.5-5.1); Sodium 131 mEq/L (136-145)
[2022-02-28] MEDS: Methadone Oral Concentrate 50 MG/5 ML UDC PO SCH (07:49)
[2022-02-28] MEDS: *HR* OxyCODONE Immed Rel 5 MG TABLET PO PRN (07:50)
[2022-02-28] MEDS: lisinopriL 20 MG TABLET PO SCH (07:50)
[2022-02-28] MEDS: *HR* Rivaroxaban 15 MG TABLET PO SCH ×2 (07:50→22:24)
[2022-02-28] MEDS: Nicotine 14 MG PATCH.TD24 TD SCH (07:51)
[2022-02-28] MEDS: Tiotropium 10 INH DOSE IH SCH (09:56)
[2022-02-28] MEDS: *HR* OxyCODONE/APAP 5/325 TABLET PO PRN ×2 (17:07→22:24)
[2022-02-28] MEDS: cefTRIAXone 2,000 MG in 0.9 % Sodium Chloride 20 ML IVP SCH (17:36)
[2022-02-28] MEDS: Melatonin 3 MG TABLET PO PRN (22:25)
[2022-03-01] MEDS: *HR* OxyCODONE/APAP 5/325 TABLET PO PRN ×4 (03:47→23:14)
[2022-03-01 04:37] LABS: Basophils % 0.3 %; Hematocrit 32.7 % (35.3-44.9); Hemoglobin 10.3 g/dL (11.5-15.4); Immature Granulocytes % 0.3 % (0-4); Lymphocytes # 0.9 K/mcL (0.6-4.6); Lymphocytes % 14.7 %; Mean Corpuscular HGB Conc 31.5 g/dL (31.6-35.5); Mean Corpuscular Hemoglobin 29.3 pg (28.0-33.3); Mean Corpuscular Volume 92.9 fL (83.0-100.0); Mean Platelet Volume 9.7 fL (9.4-12.4); Monocytes # 0.6 K/mcL (0.0-1.3); Monocytes % 9.1 %; Neutrophils # 4.7 K/mcL (1.6-8.9); Platelet Count 329 K/mcL (140-400); Red Blood Count 3.52 M/mcL (3.82-4.97); Red Cell Distribution Width 13.2 % (11.5-14.5); Segmented Neutrophils % 75.6 %; White Blood Count 6.2 K/mcL (4.3-11.1)
[2022-03-01] MEDS: Levalbuterol 1 PUFF INHALER IH SCH ×4 (04:47→22:45)
[2022-03-01 04:55] LABS: Calcium 9.1 mg/dL (8.6-10.3); Potassium 3.9 mEq/L (3.5-5.1)
[2022-03-01] MEDS: cefTRIAXone 2,000 MG in 0.9 % Sodium Chloride 20 ML IVP SCH ×2 (05:35→17:05)
[2022-03-01] MEDS: lisinopriL 20 MG TABLET PO SCH (08:13)
[2022-03-01] MEDS: Methadone Oral Concentrate 50 MG/5 ML UDC PO SCH (08:13)
[2022-03-01] MEDS: Nicotine 14 MG PATCH.TD24 TD SCH (08:13)
[2022-03-01] MEDS: *HR* Rivaroxaban 15 MG TABLET PO SCH ×2 (08:14→21:49)
[2022-03-01] MEDS: Tiotropium 10 INH DOSE IH SCH (10:54)
[2022-03-01] MEDS: Acetaminophen 325 MG TABLET PO PRN (17:07)
[2022-03-01] MEDS: Melatonin 3 MG TABLET PO PRN (21:48)
[2022-03-02] MEDS: Levalbuterol 1 PUFF INHALER IH SCH ×4 (04:02→21:24)
[2022-03-02] MEDS: cefTRIAXone 2,000 MG in 0.9 % Sodium Chloride 20 ML IVP SCH ×2 (06:17→17:36)
[2022-03-02] MEDS: Methadone Oral Concentrate 50 MG/5 ML UDC PO SCH (09:01)
[2022-03-02] MEDS: Nicotine 14 MG PATCH.TD24 TD SCH (09:02)
[2022-03-02] MEDS: lisinopriL 20 MG TABLET PO SCH (09:03)
[2022-03-02] MEDS: *HR* Rivaroxaban 15 MG TABLET PO SCH ×2 (09:03→19:53)
[2022-03-02 09:26] LABS: Basophils % 0.4 %; Hematocrit 29.3 % (35.3-44.9); Hemoglobin 9.4 g/dL (11.5-15.4); Immature Granulocytes % 0.2 % (0-4); Lymphocytes % 20.5 %; Mean Corpuscular HGB Conc 32.1 g/dL (31.6-35.5); Mean Corpuscular Hemoglobin 29.9 pg (28.0-33.3); Mean Corpuscular Volume 93.3 fL (83.0-100.0); Mean Platelet Volume 9.8 fL (9.4-12.4); Monocytes # 0.6 K/mcL (0.0-1.3); Monocytes % 12.6 %; Neutrophils # 3.2 K/mcL (1.6-8.9); Platelet Count 315 K/mcL (140-400); Red Blood Count 3.14 M/mcL (3.82-4.97); Red Cell Distribution Width 13.3 % (11.5-14.5); Segmented Neutrophils % 66.3 %; White Blood Count 4.8 K/mcL (4.3-11.1)
[2022-03-02] MEDS: Tiotropium 10 INH DOSE IH SCH (09:43)
[2022-03-02 15:47] LABS: Calcium 8.9 mg/dL (8.6-10.3); Potassium 4.1 mEq/L (3.5-5.1)
[2022-03-02] MEDS: *HR* OxyCODONE/APAP 5/325 TABLET PO PRN (19:56)
[2022-03-03 02:16] LABS: Basophils % 0.5 %; Hematocrit 29.2 % (35.3-44.9); Hemoglobin 9.3 g/dL (11.5-15.4); Immature Granulocytes % 0.3 % (0-4); Lymphocytes % 14.7 %; Mean Corpuscular HGB Conc 31.8 g/dL (31.6-35.5); Mean Corpuscular Hemoglobin 29.7 pg (28.0-33.3); Mean Corpuscular Volume 93.3 fL (83.0-100.0); Mean Platelet Volume 9.6 fL (9.4-12.4); Monocytes % 14.4 %; Neutrophils # 4.7 K/mcL (1.6-8.9); Platelet Count 309 K/mcL (140-400); Red Blood Count 3.13 M/mcL (3.82-4.97); Red Cell Distribution Width 13.2 % (11.5-14.5); Segmented Neutrophils % 70.1 %; White Blood Count 6.6 K/mcL (4.3-11.1)
[2022-03-03 02:32] LABS: Calcium 8.5 mg/dL (8.6-10.3); Potassium 3.8 mEq/L (3.5-5.1)
[2022-03-03] MEDS: Levalbuterol 1 PUFF INHALER IH SCH ×4 (04:17→23:04)
[2022-03-03] MEDS: *HR* OxyCODONE/APAP 5/325 TABLET PO PRN ×2 (05:16→20:13)
[2022-03-03] MEDS: cefTRIAXone 2,000 MG in 0.9 % Sodium Chloride 20 ML IVP SCH ×2 (05:16→17:30)
[2022-03-03] MEDS: Methadone Oral Concentrate 50 MG/5 ML UDC PO SCH (09:38)
[2022-03-03] MEDS: *HR* Rivaroxaban 15 MG TABLET PO SCH ×2 (09:40→19:24)
[2022-03-03] MEDS: lisinopriL 20 MG TABLET PO SCH (09:40)
[2022-03-03] MEDS: Nicotine 14 MG PATCH.TD24 TD SCH (09:40)
[2022-03-03] MEDS: Tiotropium 10 INH DOSE IH SCH (11:00)
[2022-03-03] MEDS ORDERED: Ondansetron 4 MG/2 ML VIAL IVP ONE (20:35)
[2022-03-03] MEDS: Melatonin 3 MG TABLET PO PRN (20:46)
[2022-03-03] MEDS ORDERED: ALPRAZolam 0.5 MG TABLET PO ONE (21:25)
[2022-03-04 02:25] LABS: Basophils % 0.5 %; Hematocrit 27.7 % (35.3-44.9); Hemoglobin 9.1 g/dL (11.5-15.4); Immature Granulocytes % 0.3 % (0-4); Lymphocytes % 16.4 %; Mean Corpuscular HGB Conc 32.9 g/dL (31.6-35.5); Mean Corpuscular Hemoglobin 30.4 pg (28.0-33.3); Mean Corpuscular Volume 92.6 fL (83.0-100.0); Mean Platelet Volume 9.8 fL (9.4-12.4); Monocytes # 0.7 K/mcL (0.0-1.3); Monocytes % 11.5 %; Neutrophils # 4.2 K/mcL (1.6-8.9); Platelet Count 289 K/mcL (140-400); Red Blood Count 2.99 M/mcL (3.82-4.97); Red Cell Distribution Width 13.2 % (11.5-14.5); Segmented Neutrophils % 71.3 %; White Blood Count 5.9 K/mcL (4.3-11.1)
[2022-03-04 02:49] LABS: Calcium 8.9 mg/dL (8.6-10.3); Potassium 4.1 mEq/L (3.5-5.1)
[2022-03-04] MEDS: Levalbuterol 1 PUFF INHALER IH SCH ×4 (03:32→22:08)
[2022-03-04] MEDS: cefTRIAXone 2,000 MG in 0.9 % Sodium Chloride 20 ML IVP SCH (04:59)
[2022-03-04] MEDS: lisinopriL 20 MG TABLET PO SCH (09:27)
[2022-03-04] MEDS: Nicotine 14 MG PATCH.TD24 TD SCH (09:27)
[2022-03-04] MEDS: *HR* OxyCODONE/APAP 5/325 TABLET PO PRN ×2 (09:27→18:55)
[2022-03-04] MEDS: *HR* Rivaroxaban 15 MG TABLET PO SCH ×2 (09:27→21:19)
[2022-03-04] MEDS: Tiotropium 10 INH DOSE IH SCH (10:30)
[2022-03-04] MEDS: Methadone Oral Concentrate 50 MG/5 ML UDC PO SCH (10:40)
[2022-03-04] MEDS: Melatonin 3 MG TABLET PO PRN (21:18)
[2022-03-05] MEDS: *HR* OxyCODONE/APAP 5/325 TABLET PO PRN ×4 (01:40→21:07)
[2022-03-05] MEDS: Acetaminophen 325 MG TABLET PO PRN (03:12)
[2022-03-05] MEDS: Levalbuterol 1 PUFF INHALER IH SCH ×4 (04:34→21:39)
[2022-03-05] MEDS: Methadone Oral Concentrate 50 MG/5 ML UDC PO SCH (08:10)
[2022-03-05] MEDS: Nicotine 14 MG PATCH.TD24 TD SCH (08:11)
[2022-03-05] MEDS: lisinopriL 20 MG TABLET PO SCH (08:13)
[2022-03-05] MEDS: *HR* Rivaroxaban 15 MG TABLET PO SCH ×2 (08:13→21:06)
[2022-03-05] MEDS: Tiotropium 10 INH DOSE IH SCH (10:41)
[2022-03-05] MEDS ORDERED: *HR* LORazepam 2 MG/ML VIAL IVP ONE (21:03)
[2022-03-05] MEDS: Melatonin 3 MG TABLET PO PRN (21:07)
[2022-03-06] MEDS: Levalbuterol 1 PUFF INHALER IH SCH ×4 (04:37→22:17)
[2022-03-06] MEDS: *HR* OxyCODONE/APAP 5/325 TABLET PO PRN ×3 (04:46→19:57)
[2022-03-06] MEDS: lisinopriL 20 MG TABLET PO SCH (09:02)
[2022-03-06] MEDS: *HR* Rivaroxaban 15 MG TABLET PO SCH ×2 (09:02→19:58)
[2022-03-06] MEDS: Methadone Oral Concentrate 50 MG/5 ML UDC PO SCH (09:02)
[2022-03-06] MEDS: Nicotine 14 MG PATCH.TD24 TD SCH (09:03)
[2022-03-06] MEDS: Tiotropium 10 INH DOSE IH SCH (10:00)
[2022-03-06] MEDS: cloNIDine HCL 0.1 MG TABLET PO PRN ×2 (16:58→19:58)
[2022-03-06] MEDS: Melatonin 3 MG TABLET PO PRN (19:57)
[2022-03-07] MEDS: *HR* OxyCODONE/APAP 5/325 TABLET PO PRN ×4 (00:24→22:59)
[2022-03-07] MEDS: Levalbuterol 1 PUFF INHALER IH SCH ×4 (03:58→22:33)
[2022-03-07] MEDS: Methadone Oral Concentrate 50 MG/5 ML UDC PO SCH (09:40)
[2022-03-07] MEDS: Nicotine 14 MG PATCH.TD24 TD SCH (09:41)
[2022-03-07] MEDS: *HR* Rivaroxaban 15 MG TABLET PO SCH ×2 (09:41→20:14)
[2022-03-07] MEDS: lisinopriL 20 MG TABLET PO SCH (09:41)
[2022-03-07] MEDS: cloNIDine HCL 0.1 MG TABLET PO PRN ×3 (09:43→22:59)
[2022-03-07] MEDS: Tiotropium 10 INH DOSE IH SCH (09:51)
[2022-03-07] MEDS: Acetaminophen 325 MG TABLET PO PRN (20:11)
[2022-03-07] MEDS: Melatonin 3 MG TABLET PO PRN (20:14)
[2022-03-08] MEDS: *HR* OxyCODONE/APAP 5/325 TABLET PO PRN ×4 (03:33→18:32)
[2022-03-08] MEDS: Levalbuterol 1 PUFF INHALER IH SCH ×4 (03:44→22:38)
[2022-03-08] MEDS: cloNIDine HCL 0.1 MG TABLET PO PRN ×2 (07:37→16:54)
[2022-03-08] MEDS: *HR* Rivaroxaban 15 MG TABLET PO SCH ×2 (07:37→21:12)
[2022-03-08] MEDS: Methadone Oral Concentrate 50 MG/5 ML UDC PO SCH (07:37)
[2022-03-08] MEDS: lisinopriL 20 MG TABLET PO SCH (07:37)
[2022-03-08] MEDS: Nicotine 14 MG PATCH.TD24 TD SCH (07:38)
[2022-03-08] MEDS: Tiotropium 10 INH DOSE IH SCH (10:15)
[2022-03-08] MEDS: Acetaminophen 325 MG TABLET PO PRN (18:32)
[2022-03-08] MEDS: Melatonin 3 MG TABLET PO PRN (21:12)
[2022-03-09] MEDS: Levalbuterol 1 PUFF INHALER IH SCH ×4 (03:53→22:29)
[2022-03-09] MEDS: *HR* OxyCODONE/APAP 5/325 TABLET PO PRN ×4 (04:06→19:04)
[2022-03-09] MEDS: Nicotine 14 MG PATCH.TD24 TD SCH (08:04)
[2022-03-09] MEDS: lisinopriL 20 MG TABLET PO SCH (08:04)
[2022-03-09] MEDS: *HR* Rivaroxaban 15 MG TABLET PO SCH ×2 (08:04→20:17)
[2022-03-09] MEDS: Tiotropium 10 INH DOSE IH SCH (09:38)
[2022-03-09] MEDS ORDERED: *HR* Methadone 10 MG TABLET PO ONE (14:30)
[2022-03-10] MEDS: Levalbuterol 1 PUFF INHALER IH SCH ×4 (04:07→21:55)
[2022-03-10] MEDS: *HR* OxyCODONE/APAP 5/325 TABLET PO PRN ×2 (09:14→16:07)
[2022-03-10] MEDS: lisinopriL 20 MG TABLET PO SCH (09:14)
[2022-03-10] MEDS: Nicotine 14 MG PATCH.TD24 TD SCH (09:14)
[2022-03-10] MEDS: *HR* Rivaroxaban 15 MG TABLET PO SCH ×2 (09:14→21:10)
[2022-03-10] MEDS: Tiotropium 10 INH DOSE IH SCH (10:58)
[2022-03-10] MEDS: Melatonin 3 MG TABLET PO PRN (21:10)
[2022-03-11] MEDS: *HR* OxyCODONE/APAP 5/325 TABLET PO PRN ×5 (02:53→22:39)
[2022-03-11] MEDS: Levalbuterol 1 PUFF INHALER IH SCH ×4 (04:02→21:21)
[2022-03-11] MEDS: Nicotine 14 MG PATCH.TD24 TD SCH (08:26)
[2022-03-11] MEDS: lisinopriL 20 MG TABLET PO SCH (08:26)
[2022-03-11] MEDS: *HR* Rivaroxaban 15 MG TABLET PO SCH ×2 (08:26→19:52)
[2022-03-11] MEDS ORDERED: *HR* Buprenorphine HCl 2 MG SUBLINGUAL TABLET SL SCH (10:15)
[2022-03-11] MEDS: Tiotropium 10 INH DOSE IH SCH (10:55)
[2022-03-11] MEDS: cloNIDine HCL 0.1 MG TABLET PO PRN ×2 (14:53→22:39)
[2022-03-11] MEDS: *HR* Buprenorphine HCl 2 MG SUBLINGUAL TABLET SL SCH (19:52)
[2022-03-11] MEDS: Melatonin 3 MG TABLET PO PRN (19:52)
[2022-03-11] MEDS: Acetaminophen 325 MG TABLET PO PRN (19:55)
[2022-03-12] MEDS: Simethicone 80 MG TAB.CHEW PO PRN ×2 (00:17→08:41)
[2022-03-12] MEDS: Levalbuterol 1 PUFF INHALER IH SCH ×4 (03:27→22:00)
[2022-03-12] MEDS: *HR* OxyCODONE/APAP 5/325 TABLET PO PRN ×3 (03:49→21:12)
[2022-03-12] MEDS: *HR* Rivaroxaban 15 MG TABLET PO SCH ×2 (08:41→21:11)
[2022-03-12] MEDS: *HR* Buprenorphine HCl 2 MG SUBLINGUAL TABLET SL SCH ×2 (08:42→21:14)
[2022-03-12] MEDS: Nicotine 14 MG PATCH.TD24 TD SCH (08:42)
[2022-03-12] MEDS: lisinopriL 20 MG TABLET PO SCH (08:50)
[2022-03-12] MEDS: Tiotropium 10 INH DOSE IH SCH (11:30)
[2022-03-12] MEDS: cloNIDine HCL 0.1 MG TABLET PO PRN (12:22)
[2022-03-12] MEDS: Acetaminophen 325 MG TABLET PO PRN ×2 (17:36→23:42)
[2022-03-12] MEDS: Melatonin 3 MG TABLET PO PRN (23:01)
[2022-03-13] MEDS: Levalbuterol 1 PUFF INHALER IH SCH ×3 (04:32→15:46)
[2022-03-13] MEDS: *HR* Rivaroxaban 15 MG TABLET PO SCH (07:56)
[2022-03-13] MEDS: Nicotine 14 MG PATCH.TD24 TD SCH (07:56)
[2022-03-13] MEDS: *HR* Buprenorphine HCl 2 MG SUBLINGUAL TABLET SL SCH (07:56)
[2022-03-13] MEDS: lisinopriL 20 MG TABLET PO SCH (07:56)
[2022-03-13] MEDS: *HR* OxyCODONE/APAP 5/325 TABLET PO PRN (08:53)
[2022-03-13 09:19] LABS: Hematocrit 29.9 % (35.3-44.9); Hemoglobin 9.2 g/dL (11.5-15.4); Mean Corpuscular HGB Conc 30.8 g/dL (31.6-35.5); Mean Corpuscular Hemoglobin 28.4 pg (28.0-33.3); Mean Corpuscular Volume 92.3 fL (83.0-100.0); Mean Platelet Volume 9.2 fL (9.4-12.4); Platelet Count 317 K/mcL (140-400); Red Blood Count 3.24 M/mcL (3.82-4.97); White Blood Count 3.9 K/mcL (4.3-11.1)
[2022-03-13 09:27] LABS: BUN/Creatinine Ratio 28 (6-26); Blood Urea Nitrogen 18 mg/dL (8-23); Calcium 9.1 mg/dL (8.6-10.3); Carbon Dioxide 31 mEq/L (23-29); Chloride 103 mEq/L (98-107); Glucose 100 mg/dL (70-105); Osmolality,Calculated 284 (280-300); Potassium 3.8 mEq/L (3.5-5.1); Sodium 136 mEq/L (136-145)
[2022-03-13] MEDS ORDERED: *HR* OxyCODONE/APAP 5/325 TABLET PO PRN (10:38)
[2022-03-13] MEDS: Tiotropium 10 INH DOSE IH SCH (10:44)
[2022-03-13 10:57] VITALS: BP 192/84; PULSE 72; TEMP 98.4; O2SAT 97
[2022-03-13] MEDS: Acetaminophen 325 MG TABLET PO PRN (13:52)
[2022-03-13] MEDS: cloNIDine HCL 0.1 MG TABLET PO PRN (13:52)
== END 2022-03-13 17:10 | disposition home or self-care (01) | DRG 720 ==
LOC: EMEROOARM 14:26 → 3NENU 22:38 → SUATTDRO 22:38 → 3NENU 23:27 → 2NNU 02-24 18:24 → 2ANU 02-28 12:52
PROVIDERS: ADMIT Internal Medicine; ATTEND Internal Medicine

== ENCOUNTER 2022-04-12 19:44 | Inpatient (IN) ==
[2022-04-12] MEDS ORDERED: 0.9 % Sodium Chloride 1,000 ML ONE (20:16)
[2022-04-12 20:33] LABS: VBG HCO3 29 mEq/L (21-27); VBG PCO2 48 mmHg (41-51); VBG PH 7.39 pH Units (7.32-7.42); VBG PO2 95 mmHg (25-50)
[2022-04-12 20:35] LABS: Hematocrit 32.4 % (35.3-44.9); Hemoglobin 10.1 g/dL (11.5-15.4); Mean Corpuscular HGB Conc 31.2 g/dL (31.6-35.5); Mean Corpuscular Hemoglobin 28.5 pg (28.0-33.3); Mean Corpuscular Volume 91.5 fL (83.0-100.0); Mean Platelet Volume 9.7 fL (9.4-12.4); Monocytes # 0.4 K/mcL (0.0-1.3); Platelet Count 282 K/mcL (140-400); Red Blood Count 3.54 M/mcL (3.82-4.97); Red Cell Distribution Width 14.9 % (11.5-14.5); White Blood Count 21.1 K/mcL (4.3-11.1)
[2022-04-12 20:53] LABS: INR 1.3; Prothrombin Time 14.7 Seconds (9.4-12.1)
[2022-04-12 21:01] LABS: Lymphocytes # 0.4 K/mcL (0.6-4.6); Neutrophils # 18.6 K/mcL (1.6-8.9); Platelet Estimate Normal (Normal)
[2022-04-12 21:02] LABS: Hypochromasia Present (Not Present); Microcytosis Present (Not Present)
[2022-04-12] MEDS ORDERED: Piperacillin/Tazobactam 3.375 GM in 0.9 % Sodium Chloride Mini Bag 100 ML IVPB ONE (21:02)
[2022-04-12 21:05] LABS: Albumin 2.6 g/dL (3.5-5.7); Albumin/Globulin Ratio 0.5 (1.1-2.2); Bilirubin,Direct 0.4 mg/dL (0.0-0.2); Bilirubin,Indirect 0.8 mg/dL (0.0-1.0); Bilirubin,Total 1.2 mg/dL (0.3-1.0); Calcium 8.9 mg/dL (8.6-10.3); Globulin 4.9 g/dL (2.4-3.5); Magnesium 1.1 mg/dL (1.6-2.6); Potassium 2.7 mEq/L (3.5-5.1); Total Protein 7.5 g/dL (6.4-8.9); Troponin I 0.19 ng/mL (< 0.04)
[2022-04-12] MEDS ORDERED: Vancomycin 1,250 MG/262.5 ML IV.SOLN IVPB ONE (21:15)
[2022-04-12] MEDS ORDERED: 0.9 % Sodium Chloride 500 ML ONE (21:16)
[2022-04-12 21:17] LABS: Bilirubin,Urine Negative (Negative); Blood,Urine Negative (Negative); Clarity,Urine Clear (Clear); Color,Urine Light-Yellow (Yellow); Glucose,Urine (UA) Normal (Normal); Hyaline Casts,Urine Few per lpf (None Seen); Ketones,Urine Trace mg/dL (Negative); Leukocyte Esterase,Urine Negative (Negative); Mucus,Urine Few per lpf (None-Few); Nitrite,Urine Negative (Negative); PH,Urine 7.5 pH Units (5.0-8.0); Protein,Urine 70 mg/dL (Neg-Trace); RBC,Urine 0-3 per hpf (0-3); Specific Gravity,Urine 1.015 (1.010-1.025); Squamous Epithelial Cell,Urine Few per hpf (None-Few); WBC,Urine 0-3 per hpf (0-3)
[2022-04-12] MEDS ORDERED: Iopamidol - 370 500 ML MLS IVP ONE ×2 (21:34)
[2022-04-13] MEDS ORDERED: Naloxone 0.4 MG/ML INJ IVP PRN (00:56)
[2022-04-13] MEDS ORDERED: D5% in Water 1,000 ML IVC PRN (00:58)
[2022-04-13] MEDS ORDERED: Dextrose Gel 15 GM/37.5 ML TUBE PO PRN ×2 (00:58)
[2022-04-13] MEDS ORDERED: *HR* Dextrose 50 % in Water (Syg) 50 ML SYRINGE ONE (01:00)
[2022-04-13] MEDS: *HR* Dextrose 50 % in Water (Syg) 50 ML SYRINGE IVP PRN ×2 (01:30→08:08)
[2022-04-13 01:36] LABS: Hematocrit 29.4 % (35.3-44.9); Hemoglobin 9.2 g/dL (11.5-15.4); Mean Corpuscular HGB Conc 31.3 g/dL (31.6-35.5); Mean Corpuscular Hemoglobin 28.5 pg (28.0-33.3); Mean Platelet Volume 9.6 fL (9.4-12.4); Platelet Count 249 K/mcL (140-400); Red Blood Count 3.23 M/mcL (3.82-4.97); Red Cell Distribution Width 15.2 % (11.5-14.5); White Blood Count 21.2 K/mcL (4.3-11.1)
[2022-04-13 01:39] LABS: VBG Ionized Calcium 1.13 mmol/L (1.15-1.35)
[2022-04-13 01:44] LABS: INR 1.4; Prothrombin Time 15.4 Seconds (9.4-12.1)
[2022-04-13 01:46] LABS: Activated Partial Thrombo Time 23.4 Seconds (26.0-36.0)
[2022-04-13 01:57] LABS: Albumin 2.3 g/dL (3.5-5.7); Albumin/Globulin Ratio 0.6 (1.1-2.2); Bilirubin,Direct 0.5 mg/dL (0.0-0.2); Bilirubin,Indirect 0.6 mg/dL (0.0-1.0); Bilirubin,Total 1.1 mg/dL (0.3-1.0); Calcium 8.2 mg/dL (8.6-10.3); Globulin 4.1 g/dL (2.4-3.5); Magnesium 1.1 mg/dL (1.6-2.6); Phosphorous 3.9 mg/dL (2.7-4.5); Potassium 2.7 mEq/L (3.5-5.1); Total Protein 6.4 g/dL (6.4-8.9)
[2022-04-13 02:08] LABS: Platelet Estimate Normal (Normal)
[2022-04-13 02:09] LABS: Lymphocytes # 0.4 K/mcL (0.6-4.6); Neutrophils # 20.4 K/mcL (1.6-8.9); Toxic Vacuolation Present (Not Present)
[2022-04-13 02:10] LABS: Anisocytosis 1+ (Not Present); Hypochromasia Present (Not Present)
[2022-04-13] MEDS ORDERED: Artificial Tears SOLN 15 ML BOTTLE BOTH EYES PRN (02:14)
[2022-04-13] MEDS ORDERED: 0.9 % Sodium Chloride 500 ML ONE (02:16)
[2022-04-13] MEDS ORDERED: *HR* Midazolam HCl 2 MG/2 ML VIAL IVP ONE ×2 (02:21→11:02)
[2022-04-13] MEDS: Dexmedetomidine HCl 400 MCG/100 ML MLS IVC SCH (02:30)
[2022-04-13] MEDS ORDERED: Budesonide/Formoterol 160/4.5 1 PUFF INH IH ONE (02:31)
[2022-04-13] MEDS ORDERED: Ipratropium/Albuterol Neb 3 ML ONE (03:36)
[2022-04-13] MEDS ORDERED: *HR* Atropine Sulfate 1 MG/10 ML SYRINGE ONE (03:40)
[2022-04-13] MEDS ORDERED: *HR* Heparin 5,000 UNIT/ML VIAL IVP PRN (03:46)
[2022-04-13] MEDS: Ipratropium/Albuterol Neb 3 ML IH SCH ×5 (03:49→19:45)
[2022-04-13 04:01] LABS: ABG Base Excess 0 mEq/L (-2 to 3); ABG HCO3 26 mEq/L (21-27); ABG Oxygen Saturation 96 % (95-98); ABG PCO2 46 mmHg (35-45); ABG PH 7.35 pH Units (7.32-7.45); ABG PO2 83 mmHg (85-104); ABG TCO2 27 mEq/L (20-26); Blood Gas Modality AF; Blood Gas VT 450 cc
[2022-04-13] MEDS: FentaNYL (PF) 1,000 MCG/100 ML IV.SOLN IVC SCH ×4 (04:03→20:53)
[2022-04-13] MEDS: Phenylephrine 20 MG in 0.9 % Sodium Chloride 250 ML IVC SCH (04:09)
[2022-04-13] MEDS: Insulin LISPRO 300 UNITS/3 ML VIAL SUBQ SCH ×6 (04:16→23:49)
[2022-04-13] MEDS: Artificial Tears SOLN 15 ML BOTTLE BOTH EYES SCH ×6 (04:16→23:49)
[2022-04-13] MEDS: Heparin 25,000UNIT/250ML 1/2NS 25,000 UNIT/250 ML IV.SOLN IVC SCH ×2 (04:27→18:44)
[2022-04-13] MEDS: Norepinephrine 4 MG/254 ML IV.SOLN IVC SCH ×4 (04:30→11:58)
[2022-04-13] MEDS: Pantoprazole 40 MG VIAL IVP SCH ×2 (05:36→17:07)
[2022-04-13 06:42] LABS: Heparin anti-factor XA UFH < 0.04 IU/mL (0.30-0.70); INR 1.5; Prothrombin Time 16.8 Seconds (9.4-12.1)
[2022-04-13] MEDS: Budesonide/Formoterol 160/4.5 1 PUFF INH IH SCH ×2 (07:17→19:46)
[2022-04-13 07:18] LABS: Acetaminophen < 10 mcg/mL (10-20); Ethanol < 10 mg/dL (Less than 10); Salicylate < 2.5 mg/dL (15.0-30.0)
[2022-04-13 07:33] LABS: Thyroid Stimulating Hormone 1.333 mcIU/mL (0.340-5.600)
[2022-04-13 07:47] LABS: A.calcoaceticus-baumannii cplx Not Detected (Not Detect); Bacteroides fragilis by PCR Not Detected (Not Detect); Candida albicans by PCR Not Detected (Not Detect); Candida auris by PCR Not Detected (Not Detect); Candida glabrata by PCR Not Detected (Not Detect); Candida krusei by PCR Not Detected (Not Detect); Candida parapsilosis by PCR Not Detected (Not Detect); Candida tropicalis by PCR Not Detected (Not Detect); Crypto. neoformans/gattii PCR Not Detected (Not Detect); Enterobacter cloacae Cmplx PCR Not Detected (Not Detect); Enterobacterales by PCR Not Detected (Not Detect); Enterococcus faecalis by PCR Not Detected (Not Detect); Enterococcus faecium by PCR Not Detected (Not Detect); Escherichia coli by PCR Not Detected (Not Detect); Klebs. pneumoniae group by PCR Not Detected (Not Detect); Klebsiella aerogenes by PCR Not Detected (Not Detect); Klebsiella oxytoca by PCR Not Detected (Not Detect); Proteus by PCR Not Detected (Not Detect); Pseudomonas aeruginosa by PCR Not Detected (Not Detect); Salmonella species by PCR Not Detected (Not Detect); Serratia marcescens by PCR Not Detected (Not Detect); Staph epidermidis by PCR Not Detected (Not Detect); Staph lugdunensis by PCR Not Detected (Not Detect); Staphylococcus aureus by PCR Not Detected (Not Detect); Staphylococcus by PCR Not Detected (Not Detect); Stenotrophomonas maltophilia Not Detected (Not Detect); Streptococcus agalactiae(B)PCR Not Detected (Not Detect); Streptococcus pneumoniae PCR DETECTED (Not Detect); Streptococcus pyogenes (A) PCR Not Detected (Not Detect)
[2022-04-13] MEDS: Chlorhexidine Rinse 15 ML MOUTHWASH MM SCH ×2 (08:15→20:00)
[2022-04-13] MEDS: Piperacillin/Tazobactam 3.375 GM in 0.9 % Sodium Chloride Mini Bag 100 ML IVPB SCH ×3 (08:16→23:54)
[2022-04-13] MEDS ORDERED: D5% in Lactated Ringers 1,000 ML IVC SCH (08:30)
[2022-04-13 08:52] LABS: Calcium 8.4 mg/dL (8.6-10.3); Potassium 3.1 mEq/L (3.5-5.1)
[2022-04-13 09:06] LABS: Red Cell Distribution Width 15.5 % (11.5-14.5)
[2022-04-13 09:07] LABS: Hematocrit 32.4 % (35.3-44.9); Hemoglobin 9.9 g/dL (11.5-15.4); Mean Corpuscular HGB Conc 30.6 g/dL (31.6-35.5); Mean Corpuscular Volume 91.5 fL (83.0-100.0); Platelet Count 321 K/mcL (140-400); Red Blood Count 3.54 M/mcL (3.82-4.97)
[2022-04-13 09:09] LABS: White Blood Count 33.8 K/mcL (4.3-11.1)
[2022-04-13] MEDS ORDERED: Potassium Chloride 40 MEQ in D5% in Lactated Ringers 1,000 ML IVC SCH (09:15)
[2022-04-13] MEDS: Potassium Chloride 40 MEQ in D5% in Lactated Ringers 1,000 ML IVC SCH ×3 (10:20→20:52)
[2022-04-13] MEDS ORDERED: *HR* Etomidate 20 MG/10 ML AMPUL IVP ONE (11:02)
[2022-04-13] MEDS ORDERED: *HR* Midazolam HCl 5 MG/5 ML VIAL IVP ONE (11:02)
[2022-04-13 11:07] LABS: Amphetamine Screen,Urine Negative ng/mL (Cutoff=1000); Barbiturate Screen,Urine Negative ng/mL (Cutoff=200); Benzodiazepines Screen,Urine Positive ng/mL (Cutoff=200); Cannabinoid Screen,Urine Negative ng/mL (Cutoff = 50); Cocaine Screen,Urine Negative ng/mL (Cutoff= 300); Opiate Screen,Urine Negative ng/mL (Cutoff=300); Phencyclidine Screen,Urine Negative ng/mL (Cutoff=25)
[2022-04-13] MEDS: Hydrocortisone Sodium Succ 100 MG/2 ML VIAL IVP SCH ×3 (13:46→23:53)
[2022-04-13] MEDS ORDERED: Norepinephrine 32 MG/250 ML IV.SOLN IVC SCH (14:00)
[2022-04-13] MEDS: Norepinephrine 32 MG/250 ML IV.SOLN IVC SCH (15:35)
[2022-04-13 15:52] LABS: Calcium 8.3 mg/dL (8.6-10.3); Magnesium 2.4 mg/dL (1.6-2.6); Potassium 3.5 mEq/L (3.5-5.1)
[2022-04-13 15:59] LABS: Troponin I 0.71 ng/mL (< 0.04)
[2022-04-13] MEDS: *HR* Heparin 5,000 UNIT/ML VIAL IVP PRN (18:48)
[2022-04-13 22:48] LABS: Calcium 8.6 mg/dL (8.6-10.3)
[2022-04-13 22:57] LABS: Troponin I 0.51 ng/mL (< 0.04)
[2022-04-14] MEDS: Ipratropium/Albuterol Neb 3 ML IH SCH ×7 (00:08→23:10)
[2022-04-14] MEDS: FentaNYL (PF) 1,000 MCG/100 ML IV.SOLN IVC SCH ×5 (02:04→23:39)
[2022-04-14] MEDS: Dexmedetomidine HCl 400 MCG/100 ML MLS IVC SCH (02:29)
[2022-04-14] MEDS: Phenylephrine 20 MG in 0.9 % Sodium Chloride 250 ML IVC SCH (03:15)
[2022-04-14] MEDS: Heparin 25,000UNIT/250ML 1/2NS 25,000 UNIT/250 ML IV.SOLN IVC SCH ×2 (03:46→20:20)
[2022-04-14] MEDS: Artificial Tears SOLN 15 ML BOTTLE BOTH EYES SCH ×6 (03:46→23:38)
[2022-04-14] MEDS: Insulin LISPRO 300 UNITS/3 ML VIAL SUBQ SCH ×6 (03:47→23:39)
[2022-04-14 04:20] LABS: VBG Ionized Calcium 1.24 mmol/L (1.15-1.35)
[2022-04-14 04:22] LABS: ABG Base Excess 0 mEq/L (-2 to 3); ABG HCO3 26 mEq/L (21-27); ABG Oxygen Saturation 95 % (95-98); ABG PCO2 47 mmHg (35-45); ABG PH 7.35 pH Units (7.32-7.45); ABG PO2 81 mmHg (85-104); ABG TCO2 27 mEq/L (20-26); Blood Gas VT 450 cc
[2022-04-14 04:27] LABS: Red Blood Count 3.23 M/mcL (3.82-4.97); Red Cell Distribution Width 15.7 % (11.5-14.5)
[2022-04-14 04:29] LABS: Hematocrit 29.7 % (35.3-44.9); Lymphocytes # 0.7 K/mcL (0.6-4.6); Mean Corpuscular HGB Conc 30.3 g/dL (31.6-35.5); Mean Corpuscular Hemoglobin 27.9 pg (28.0-33.3); Mean Platelet Volume 9.9 fL (9.4-12.4); Platelet Count 370 K/mcL (140-400)
[2022-04-14 04:34] LABS: White Blood Count 32.9 K/mcL (4.3-11.1)
[2022-04-14 04:39] LABS: Albumin/Globulin Ratio 0.5 (1.1-2.2); Bilirubin,Direct 0.3 mg/dL (0.0-0.2); Bilirubin,Indirect 0.4 mg/dL (0.0-1.0); Bilirubin,Total 0.7 mg/dL (0.3-1.0); Calcium 8.5 mg/dL (8.6-10.3); Magnesium 2.3 mg/dL (1.6-2.6); Potassium 4.1 mEq/L (3.5-5.1)
[2022-04-14 04:44] LABS: Heparin anti-factor XA UFH 0.19 IU/mL (0.30-0.70); INR 1.2; Prothrombin Time 13.4 Seconds (9.4-12.1)
[2022-04-14 04:47] LABS: Activated Partial Thrombo Time 41.3 Seconds (26.0-36.0)
[2022-04-14 04:59] LABS: Monocytes # 0.7 K/mcL (0.0-1.3); Neutrophils # 31.6 K/mcL (1.6-8.9)
[2022-04-14 05:00] LABS: Platelet Estimate Normal (Normal)
[2022-04-14] MEDS: Hydrocortisone Sodium Succ 100 MG/2 ML VIAL IVP SCH (05:01)
[2022-04-14] MEDS: Pantoprazole 40 MG VIAL IVP SCH ×2 (05:01→16:49)
[2022-04-14] MEDS: Potassium Chloride 40 MEQ in D5% in Lactated Ringers 1,000 ML IVC SCH ×3 (05:01→18:41)
[2022-04-14] MEDS: Chlorhexidine Rinse 15 ML MOUTHWASH MM SCH ×2 (07:32→20:14)
[2022-04-14] MEDS: Piperacillin/Tazobactam 3.375 GM in 0.9 % Sodium Chloride Mini Bag 100 ML IVPB SCH ×3 (07:32→23:38)
[2022-04-14] MEDS: Budesonide/Formoterol 160/4.5 1 PUFF INH IH SCH ×2 (08:07→20:02)
[2022-04-14] MEDS: *HR* Heparin 5,000 UNIT/ML VIAL IVP PRN ×2 (09:55→17:31)
[2022-04-14] MEDS: Acetaminophen 325 MG TABLET PO PRN (12:14)
[2022-04-14] MEDS: Norepinephrine 32 MG/250 ML IV.SOLN IVC SCH (14:16)
[2022-04-15] MEDS: Potassium Chloride 40 MEQ in D5% in Lactated Ringers 1,000 ML IVC SCH ×2 (02:15→08:17)
[2022-04-15] MEDS: Ipratropium/Albuterol Neb 3 ML IH SCH ×6 (04:01→23:10)
[2022-04-15 04:13] LABS: ABG Base Excess 0 mEq/L (-2 to 3); ABG HCO3 24 mEq/L (21-27); ABG Oxygen Saturation 95 % (95-98); ABG PCO2 38 mmHg (35-45); ABG PH 7.42 pH Units (7.32-7.45); ABG PO2 74 mmHg (85-104); ABG TCO2 26 mEq/L (20-26); Blood Gas VT 450 cc
[2022-04-15] MEDS: Norepinephrine 4 MG/254 ML IV.SOLN IVC SCH ×2 (05:14→16:30)
[2022-04-15] MEDS: Phenylephrine 20 MG in 0.9 % Sodium Chloride 250 ML IVC SCH (05:14)
[2022-04-15] MEDS: Dexmedetomidine HCl 400 MCG/100 ML MLS IVC SCH (05:14)
[2022-04-15] MEDS: Insulin LISPRO 300 UNITS/3 ML VIAL SUBQ SCH ×5 (05:15→19:53)
[2022-04-15] MEDS: Artificial Tears SOLN 15 ML BOTTLE BOTH EYES SCH ×6 (05:15→22:57)
[2022-04-15] MEDS: Pantoprazole 40 MG VIAL IVP SCH ×2 (05:16→18:13)
[2022-04-15] MEDS: FentaNYL (PF) 1,000 MCG/100 ML IV.SOLN IVC SCH ×4 (05:16→22:56)
[2022-04-15 05:36] LABS: Hematocrit 27.1 % (35.3-44.9); Hemoglobin 8.1 g/dL (11.5-15.4); Immature Granulocytes % 0.8 % (0-4); Lymphocytes # 0.9 K/mcL (0.6-4.6); Mean Corpuscular HGB Conc 29.9 g/dL (31.6-35.5); Mean Corpuscular Hemoglobin 27.8 pg (28.0-33.3); Mean Corpuscular Volume 93.1 fL (83.0-100.0); Monocytes # 0.4 K/mcL (0.0-1.3); Monocytes % 1.9 %; Platelet Count 284 K/mcL (140-400); Red Blood Count 2.91 M/mcL (3.82-4.97); Red Cell Distribution Width 16.1 % (11.5-14.5); Segmented Neutrophils % 93.3 %; White Blood Count 22.5 K/mcL (4.3-11.1)
[2022-04-15 05:43] LABS: VBG Ionized Calcium 1.33 mmol/L (1.15-1.35)
[2022-04-15 05:49] LABS: INR 1.1; Prothrombin Time 12.3 Seconds (9.4-12.1)
[2022-04-15 05:52] LABS: Activated Partial Thrombo Time 59.1 Seconds (26.0-36.0)
[2022-04-15 05:56] LABS: Albumin/Globulin Ratio 0.5 (1.1-2.2); Bilirubin,Direct 0.3 mg/dL (0.0-0.2); Bilirubin,Indirect 0.2 mg/dL (0.0-1.0); Bilirubin,Total 0.5 mg/dL (0.3-1.0); Calcium 8.9 mg/dL (8.6-10.3); Globulin 3.9 g/dL (2.4-3.5); Magnesium 2.1 mg/dL (1.6-2.6); Total Protein 5.9 g/dL (6.4-8.9)
[2022-04-15] MEDS: Budesonide/Formoterol 160/4.5 1 PUFF INH IH SCH ×2 (07:18→20:05)
[2022-04-15] MEDS: Piperacillin/Tazobactam 3.375 GM in 0.9 % Sodium Chloride Mini Bag 100 ML IVPB SCH ×3 (08:03→22:57)
[2022-04-15] MEDS: Chlorhexidine Rinse 15 ML MOUTHWASH MM SCH ×2 (08:06→19:53)
[2022-04-15] MEDS: Heparin 25,000UNIT/250ML 1/2NS 25,000 UNIT/250 ML IV.SOLN IVC SCH (10:30)
[2022-04-15] MEDS: Insulin DETEMIR 100 UNIT/ML X5UNITS SUBQ SCH (12:23)
[2022-04-16] MEDS: Insulin LISPRO 300 UNITS/3 ML VIAL SUBQ SCH ×7 (00:38→23:44)
[2022-04-16] MEDS: Heparin 25,000UNIT/250ML 1/2NS 25,000 UNIT/250 ML IV.SOLN IVC SCH ×2 (00:38→15:41)
[2022-04-16] MEDS: Ipratropium/Albuterol Neb 3 ML IH SCH ×6 (04:14→23:38)
[2022-04-16 04:22] LABS: ABG Base Excess 1 mEq/L (-2 to 3); ABG HCO3 26 mEq/L (21-27); ABG Oxygen Saturation 93 % (95-98); ABG PCO2 42 mmHg (35-45); ABG PO2 67 mmHg (85-104); ABG TCO2 28 mEq/L (20-26); Blood Gas VT 450 cc
[2022-04-16] MEDS: Artificial Tears SOLN 15 ML BOTTLE BOTH EYES SCH ×6 (04:22→23:44)
[2022-04-16] MEDS: Phenylephrine 20 MG in 0.9 % Sodium Chloride 250 ML IVC SCH ×2 (04:22→23:46)
[2022-04-16] MEDS: Dexmedetomidine HCl 400 MCG/100 ML MLS IVC SCH ×2 (04:22→23:46)
[2022-04-16] MEDS: FentaNYL (PF) 1,000 MCG/100 ML IV.SOLN IVC SCH ×3 (04:30→20:16)
[2022-04-16] MEDS: Pantoprazole 40 MG VIAL IVP SCH ×2 (04:31→17:25)
[2022-04-16 04:53] LABS: Basophils % 0.2 %; Hematocrit 26.9 % (35.3-44.9); Hemoglobin 7.9 g/dL (11.5-15.4); Immature Granulocytes % 0.7 % (0-4); Lymphocytes # 1.2 K/mcL (0.6-4.6); Lymphocytes % 9.9 %; Mean Corpuscular HGB Conc 29.4 g/dL (31.6-35.5); Mean Corpuscular Hemoglobin 27.9 pg (28.0-33.3); Mean Corpuscular Volume 95.1 fL (83.0-100.0); Mean Platelet Volume 9.6 fL (9.4-12.4); Monocytes # 0.5 K/mcL (0.0-1.3); Monocytes % 4.2 %; Neutrophils # 10.7 K/mcL (1.6-8.9); Platelet Count 253 K/mcL (140-400); Red Blood Count 2.83 M/mcL (3.82-4.97); Red Cell Distribution Width 16.4 % (11.5-14.5); White Blood Count 12.6 K/mcL (4.3-11.1)
[2022-04-16 04:58] LABS: INR 1.1; Prothrombin Time 12.2 Seconds (9.4-12.1)
[2022-04-16 04:58] LABS: VBG Ionized Calcium 1.38 mmol/L (1.15-1.35)
[2022-04-16 05:01] LABS: Activated Partial Thrombo Time 66.3 Seconds (26.0-36.0)
[2022-04-16 05:12] LABS: Albumin 2.1 g/dL (3.5-5.7); Albumin/Globulin Ratio 0.5 (1.1-2.2); Bilirubin,Direct 0.1 mg/dL (0.0-0.2); Bilirubin,Indirect 0.3 mg/dL (0.0-1.0); Bilirubin,Total 0.4 mg/dL (0.3-1.0); Calcium 9.1 mg/dL (8.6-10.3); Globulin 3.9 g/dL (2.4-3.5); Magnesium 1.9 mg/dL (1.6-2.6); Potassium 4.8 mEq/L (3.5-5.1)
[2022-04-16] MEDS: Piperacillin/Tazobactam 3.375 GM in 0.9 % Sodium Chloride Mini Bag 100 ML IVPB SCH ×3 (07:29→23:44)
[2022-04-16] MEDS: Chlorhexidine Rinse 15 ML MOUTHWASH MM SCH ×2 (07:29→20:16)
[2022-04-16] MEDS: Budesonide/Formoterol 160/4.5 1 PUFF INH IH SCH ×2 (07:31→20:24)
[2022-04-16] MEDS: Insulin DETEMIR 100 UNIT/ML X5UNITS SUBQ SCH (10:01)
[2022-04-16] MEDS: Norepinephrine 4 MG/254 ML IV.SOLN IVC SCH (17:25)
[2022-04-17] MEDS: FentaNYL (PF) 1,000 MCG/100 ML IV.SOLN IVC SCH ×2 (02:59→15:40)
[2022-04-17] MEDS: Artificial Tears SOLN 15 ML BOTTLE BOTH EYES SCH ×6 (03:01→23:38)
[2022-04-17] MEDS: Insulin LISPRO 300 UNITS/3 ML VIAL SUBQ SCH ×6 (03:01→23:38)
[2022-04-17] MEDS: Heparin 25,000UNIT/250ML 1/2NS 25,000 UNIT/250 ML IV.SOLN IVC SCH ×3 (03:02→18:57)
[2022-04-17 03:29] LABS: Basophils % 0.3 %; Eosinophils # 0.1 K/mcL (0.0-0.6); Eosinophils % 1.2 %; Hematocrit 28.9 % (35.3-44.9); Hemoglobin 8.5 g/dL (11.5-15.4); Immature Granulocytes % 3.8 % (0-4); Lymphocytes # 0.9 K/mcL (0.6-4.6); Lymphocytes % 14.4 %; Mean Corpuscular HGB Conc 29.4 g/dL (31.6-35.5); Mean Corpuscular Hemoglobin 27.9 pg (28.0-33.3); Mean Corpuscular Volume 94.8 fL (83.0-100.0); Mean Platelet Volume 9.6 fL (9.4-12.4); Monocytes # 0.6 K/mcL (0.0-1.3); Monocytes % 9.3 %; Neutrophils # 4.7 K/mcL (1.6-8.9); Platelet Count 207 K/mcL (140-400); Red Blood Count 3.05 M/mcL (3.82-4.97); Red Cell Distribution Width 16.7 % (11.5-14.5); White Blood Count 6.6 K/mcL (4.3-11.1)
[2022-04-17] MEDS: Ipratropium/Albuterol Neb 3 ML IH SCH ×5 (03:34→20:24)
[2022-04-17 03:35] LABS: VBG Ionized Calcium 1.31 mmol/L (1.15-1.35)
[2022-04-17 03:38] LABS: INR 1.1
[2022-04-17 03:40] LABS: Activated Partial Thrombo Time 81.6 Seconds (26.0-36.0)
[2022-04-17 04:01] LABS: Albumin 2.4 g/dL (3.5-5.7); Albumin/Globulin Ratio 0.6 (1.1-2.2); Bilirubin,Direct 0.1 mg/dL (0.0-0.2); Bilirubin,Indirect 0.3 mg/dL (0.0-1.0); Bilirubin,Total 0.4 mg/dL (0.3-1.0); Globulin 4.2 g/dL (2.4-3.5); Magnesium 1.7 mg/dL (1.6-2.6); Potassium 4.6 mEq/L (3.5-5.1); Total Protein 6.6 g/dL (6.4-8.9)
[2022-04-17 04:26] LABS: ABG Base Excess 1 mEq/L (-2 to 3); ABG HCO3 26 mEq/L (21-27); ABG Oxygen Saturation 98 % (95-98); ABG PCO2 40 mmHg (35-45); ABG PH 7.42 pH Units (7.32-7.45); ABG PO2 96 mmHg (85-104); ABG TCO2 27 mEq/L (20-26); Blood Gas Modality AF; Blood Gas VT 450 cc
[2022-04-17] MEDS ORDERED: *HR* Metoprolol 5 MG/5 ML VIAL IVP ONE (04:34)
[2022-04-17] MEDS: Pantoprazole 40 MG VIAL IVP SCH ×2 (04:58→16:06)
[2022-04-17] MEDS: Insulin DETEMIR 100 UNIT/ML X5UNITS SUBQ SCH (07:28)
[2022-04-17] MEDS: Budesonide/Formoterol 160/4.5 1 PUFF INH IH SCH ×2 (07:37→20:24)
[2022-04-17] MEDS: Piperacillin/Tazobactam 3.375 GM in 0.9 % Sodium Chloride Mini Bag 100 ML IVPB SCH ×3 (07:40→23:39)
[2022-04-17] MEDS: Chlorhexidine Rinse 15 ML MOUTHWASH MM SCH ×2 (07:41→19:47)
[2022-04-17] MEDS: *HR* Dextrose 50 % in Water (Syg) 50 ML SYRINGE IVP PRN (07:42)
[2022-04-17] MEDS: DilTIAZem 50 MG in 0.9 % Sodium Chloride 40 ML IVC SCH ×2 (08:19→16:02)
[2022-04-17] MEDS: DilTIAZem 50 MG/50 ML IV.SOLN IVC SCH (09:22)
[2022-04-17] MEDS: lisinopriL 20 MG TABLET GTUBE SCH (09:26)
[2022-04-17] MEDS: Norepinephrine 4 MG/254 ML IV.SOLN IVC SCH (11:29)
[2022-04-18] MEDS: Ipratropium/Albuterol Neb 3 ML IH SCH ×6 (00:19→20:16)
[2022-04-18 05:18] LABS: ABG Base Excess 1 mEq/L (-2 to 3); ABG HCO3 26 mEq/L (21-27); ABG Oxygen Saturation 98 % (95-98); ABG PCO2 40 mmHg (35-45); ABG PH 7.42 pH Units (7.32-7.45); ABG PO2 94 mmHg (85-104); ABG TCO2 27 mEq/L (20-26); Blood Gas Modality ASSIST CONTROL; Blood Gas VT 450 cc
[2022-04-18] MEDS: Insulin LISPRO 300 UNITS/3 ML VIAL SUBQ SCH ×5 (05:33→20:50)
[2022-04-18] MEDS: Artificial Tears SOLN 15 ML BOTTLE BOTH EYES SCH ×5 (05:33→20:34)
[2022-04-18] MEDS: Pantoprazole 40 MG VIAL IVP SCH ×2 (05:33→18:27)
[2022-04-18 06:29] LABS: Basophils % 0.3 %; Eosinophils # 0.2 K/mcL (0.0-0.6); Eosinophils % 3.1 %; Hemoglobin 8.8 g/dL (11.5-15.4); Immature Granulocytes % 5.7 % (0-4); Lymphocytes # 1.5 K/mcL (0.6-4.6); Lymphocytes % 26.3 %; Mean Corpuscular HGB Conc 29.3 g/dL (31.6-35.5); Mean Corpuscular Hemoglobin 27.7 pg (28.0-33.3); Mean Corpuscular Volume 94.3 fL (83.0-100.0); Mean Platelet Volume 9.9 fL (9.4-12.4); Monocytes # 0.6 K/mcL (0.0-1.3); Monocytes % 9.8 %; Neutrophils # 3.2 K/mcL (1.6-8.9); Platelet Count 205 K/mcL (140-400); Red Blood Count 3.18 M/mcL (3.82-4.97); Red Cell Distribution Width 16.4 % (11.5-14.5); Segmented Neutrophils % 54.8 %; White Blood Count 5.8 K/mcL (4.3-11.1)
[2022-04-18 06:38] LABS: Albumin 2.3 g/dL (3.5-5.7); Albumin/Globulin Ratio 0.5 (1.1-2.2); Bilirubin,Total 0.4 mg/dL (0.3-1.0); Calcium 8.7 mg/dL (8.6-10.3); Globulin 4.2 g/dL (2.4-3.5); Potassium 3.9 mEq/L (3.5-5.1); Total Protein 6.5 g/dL (6.4-8.9)
[2022-04-18] MEDS: Budesonide/Formoterol 160/4.5 1 PUFF INH IH SCH ×2 (07:55→20:17)
[2022-04-18] MEDS: lisinopriL 20 MG TABLET GTUBE SCH (08:38)
[2022-04-18] MEDS: Chlorhexidine Rinse 15 ML MOUTHWASH MM SCH ×2 (08:38→20:18)
[2022-04-18] MEDS: Piperacillin/Tazobactam 3.375 GM in 0.9 % Sodium Chloride Mini Bag 100 ML IVPB SCH (08:39)
[2022-04-18] MEDS: Insulin DETEMIR 100 UNIT/ML X5UNITS SUBQ SCH (08:46)
[2022-04-18 09:53] LABS: Basophils % 0.2 %; Eosinophils # 0.1 K/mcL (0.0-0.6); Eosinophils % 2.3 %; Hematocrit 28.1 % (35.3-44.9); Hemoglobin 8.3 g/dL (11.5-15.4); Immature Granulocytes % 5.3 % (0-4); Lymphocytes # 0.8 K/mcL (0.6-4.6); Lymphocytes % 14.8 %; Mean Corpuscular HGB Conc 29.5 g/dL (31.6-35.5); Mean Corpuscular Hemoglobin 27.8 pg (28.0-33.3); Mean Platelet Volume 9.6 fL (9.4-12.4); Monocytes # 0.5 K/mcL (0.0-1.3); Monocytes % 8.8 %; Neutrophils # 3.9 K/mcL (1.6-8.9); Platelet Count 182 K/mcL (140-400); Red Blood Count 2.99 M/mcL (3.82-4.97); Red Cell Distribution Width 16.6 % (11.5-14.5); Segmented Neutrophils % 68.6 %; White Blood Count 5.7 K/mcL (4.3-11.1)
[2022-04-18] MEDS: Heparin 25,000UNIT/250ML 1/2NS 25,000 UNIT/250 ML IV.SOLN IVC SCH ×2 (10:30→22:08)
[2022-04-18 10:35] LABS: Anisocytosis 1+ (Not Present); Platelet Estimate Normal (Normal)
[2022-04-18 10:47] LABS: Platelet Estimate Normal (Normal)
[2022-04-18] MEDS: cefTRIAXone 2,000 MG in 0.9 % Sodium Chloride Mini Bag 100 ML IVPB SCH (11:36)
[2022-04-18] MEDS: FentaNYL (PF) 1,000 MCG/100 ML IV.SOLN IVC SCH ×2 (13:09→22:06)
[2022-04-18] MEDS: Dexmedetomidine HCl 400 MCG/100 ML MLS IVC SCH (18:27)
[2022-04-18] MEDS: DilTIAZem 50 MG in 0.9 % Sodium Chloride 40 ML IVC SCH ×2 (20:05→21:00)
[2022-04-18] MEDS: DilTIAZem 50 MG/50 ML IV.SOLN IVC SCH (20:06)
[2022-04-18] MEDS: Acetaminophen 325 MG TABLET PO PRN (20:18)
[2022-04-19] MEDS: Artificial Tears SOLN 15 ML BOTTLE BOTH EYES SCH ×6 (00:11→20:25)
[2022-04-19] MEDS: Insulin LISPRO 300 UNITS/3 ML VIAL SUBQ SCH ×5 (00:22→19:31)
[2022-04-19] MEDS: Ipratropium/Albuterol Neb 3 ML IH SCH ×7 (00:27→23:45)
[2022-04-19 04:27] LABS: Basophils % 0.4 %; Hematocrit 28.3 % (35.3-44.9); Hemoglobin 8.2 g/dL (11.5-15.4); Immature Granulocytes % 3.2 % (0-4); Lymphocytes # 1.4 K/mcL (0.6-4.6); Lymphocytes % 26.2 %; Mean Corpuscular Hemoglobin 27.5 pg (28.0-33.3); Mean Platelet Volume 9.8 fL (9.4-12.4); Monocytes # 0.4 K/mcL (0.0-1.3); Monocytes % 7.5 %; Neutrophils # 3.4 K/mcL (1.6-8.9); Platelet Count 182 K/mcL (140-400); Red Blood Count 2.98 M/mcL (3.82-4.97); Red Cell Distribution Width 16.4 % (11.5-14.5); Segmented Neutrophils % 62.7 %; White Blood Count 5.4 K/mcL (4.3-11.1)
[2022-04-19 04:45] LABS: ABG Base Excess 1 mEq/L (-2 to 3); ABG HCO3 25 mEq/L (21-27); ABG Oxygen Saturation 95 % (95-98); ABG PCO2 36 mmHg (35-45); ABG PH 7.45 pH Units (7.32-7.45); ABG PO2 71 mmHg (85-104); ABG TCO2 26 mEq/L (20-26); Blood Gas Modality AF; Blood Gas VT 450 cc
[2022-04-19 04:46] LABS: Calcium 8.7 mg/dL (8.6-10.3)
[2022-04-19] MEDS: Pantoprazole 40 MG VIAL IVP SCH (05:12)
[2022-04-19] MEDS: FentaNYL (PF) 1,000 MCG/100 ML IV.SOLN IVC SCH (06:35)
[2022-04-19] MEDS: Chlorhexidine Rinse 15 ML MOUTHWASH MM SCH ×2 (07:46→20:24)
[2022-04-19] MEDS: lisinopriL 20 MG TABLET GTUBE SCH (07:47)
[2022-04-19] MEDS: Insulin DETEMIR 100 UNIT/ML X5UNITS SUBQ SCH (07:47)
[2022-04-19] MEDS: Budesonide/Formoterol 160/4.5 1 PUFF INH IH SCH ×2 (08:12→19:42)
[2022-04-19] MEDS: Dexmedetomidine HCl 400 MCG/100 ML MLS IVC SCH (11:45)
[2022-04-19] MEDS: cefTRIAXone 2,000 MG in 0.9 % Sodium Chloride Mini Bag 100 ML IVPB SCH (11:45)
[2022-04-19] MEDS: Heparin 25,000UNIT/250ML 1/2NS 25,000 UNIT/250 ML IV.SOLN IVC SCH (13:25)
[2022-04-19] MEDS ORDERED: Ketorolac 30 MG/ML VIAL IVP ONE (21:10)
[2022-04-20] MEDS: Insulin LISPRO 300 UNITS/3 ML VIAL SUBQ SCH ×4 (00:31→18:00)
[2022-04-20] MEDS: *HR* Dextrose 50 % in Water (Syg) 50 ML SYRINGE IVP PRN ×2 (00:35→11:28)
[2022-04-20 04:07] LABS: Basophils % 0.1 %; Hematocrit 31.1 % (35.3-44.9); Hemoglobin 9.4 g/dL (11.5-15.4); Immature Granulocytes % 1.8 % (0-4); Lymphocytes % 14.1 %; Mean Corpuscular HGB Conc 30.2 g/dL (31.6-35.5); Mean Corpuscular Hemoglobin 27.8 pg (28.0-33.3); Mean Platelet Volume 9.8 fL (9.4-12.4); Monocytes # 0.3 K/mcL (0.0-1.3); Neutrophils # 5.3 K/mcL (1.6-8.9); Platelet Count 189 K/mcL (140-400); Red Blood Count 3.38 M/mcL (3.82-4.97); Red Cell Distribution Width 15.8 % (11.5-14.5); White Blood Count 6.7 K/mcL (4.3-11.1)
[2022-04-20] MEDS: Ipratropium/Albuterol Neb 3 ML IH SCH ×6 (04:28→23:27)
[2022-04-20 04:30] LABS: Alanine Aminotransferase 12 Units/L (7-52); Albumin 2.3 g/dL (3.5-5.7); Albumin/Globulin Ratio 0.5 (1.1-2.2); Alkaline Phosphatase 133 Units/L (34-104); Aspartate Amino Transferase 28 Units/L (13-39); BUN/Creatinine Ratio 36 (6-26); Bilirubin,Total 0.4 mg/dL (0.3-1.0); Blood Urea Nitrogen 25 mg/dL (8-23); Calcium 9.1 mg/dL (8.6-10.3); Carbon Dioxide 26 mEq/L (23-29); Chloride 106 mEq/L (98-107); Globulin 4.6 g/dL (2.4-3.5); Glucose 108 mg/dL (70-105); Osmolality,Calculated 289 (280-300); Potassium 3.4 mEq/L (3.5-5.1); Sodium 137 mEq/L (136-145); Total Protein 6.9 g/dL (6.4-8.9)
[2022-04-20] MEDS: Artificial Tears SOLN 15 ML BOTTLE BOTH EYES SCH ×6 (07:00→23:30)
[2022-04-20] MEDS: Chlorhexidine Rinse 15 ML MOUTHWASH MM SCH ×2 (07:41→20:23)
[2022-04-20] MEDS: Insulin DETEMIR 100 UNIT/ML X5UNITS SUBQ SCH (07:41)
[2022-04-20] MEDS: lisinopriL 20 MG TABLET GTUBE SCH (07:42)
[2022-04-20] MEDS ORDERED: Calcium Gluconate 1gm/50mL 1 GM/50 ML BAG IVPB PRN (07:58)
[2022-04-20] MEDS ORDERED: Potassium Phosphate 44 MEQ in 0.9 % Sodium Chloride 250 ML IVPB PRN (07:58)
[2022-04-20] MEDS ORDERED: *HR* Metoprolol 5 MG/5 ML VIAL IVP ONE (08:12)
[2022-04-20] MEDS: *HR* Metoprolol 5 MG/5 ML VIAL IVP SCH ×3 (08:13→23:54)
[2022-04-20] MEDS: Budesonide/Formoterol 160/4.5 1 PUFF INH IH SCH ×2 (08:25→19:48)
[2022-04-20] MEDS ORDERED: Pantoprazole 40 MG VIAL IVP SCH (09:00)
[2022-04-20] MEDS: Potassium Chloride 40 MEQ/200 ML BAG IVPB PRN ×4 (09:19→19:35)
[2022-04-20 09:24] LABS: Basophils % 0.3 %; Hematocrit 33.7 % (35.3-44.9); Hemoglobin 10.3 g/dL (11.5-15.4); Immature Granulocytes % 1.5 % (0-4); Lymphocytes # 0.8 K/mcL (0.6-4.6); Lymphocytes % 10.8 %; Mean Corpuscular HGB Conc 30.6 g/dL (31.6-35.5); Mean Corpuscular Hemoglobin 27.8 pg (28.0-33.3); Mean Corpuscular Volume 91.1 fL (83.0-100.0); Mean Platelet Volume 9.4 fL (9.4-12.4); Monocytes # 0.3 K/mcL (0.0-1.3); Monocytes % 4.4 %; Neutrophils # 6.5 K/mcL (1.6-8.9); Platelet Count 212 K/mcL (140-400); Red Cell Distribution Width 15.9 % (11.5-14.5); White Blood Count 7.8 K/mcL (4.3-11.1)
[2022-04-20 09:41] LABS: BUN/Creatinine Ratio 33 (6-26); Blood Urea Nitrogen 22 mg/dL (8-23); Carbon Dioxide 28 mEq/L (23-29); Chloride 105 mEq/L (98-107); Glucose 120 mg/dL (70-105); Osmolality,Calculated 287 (280-300); Potassium 3.2 mEq/L (3.5-5.1); Sodium 136 mEq/L (136-145)
[2022-04-20] MEDS: lisinopriL 20 MG TABLET PO SCH (09:49)
[2022-04-20] MEDS: cefTRIAXone 2,000 MG in 0.9 % Sodium Chloride Mini Bag 100 ML IVPB SCH (11:24)
[2022-04-20] MEDS ORDERED: Simethicone 80 MG TAB.CHEW PO PRN (12:07)
[2022-04-20] MEDS ORDERED: Morphine Sulfate 2 MG/ML SYRINGE IVP ONE (13:24)
[2022-04-20] MEDS ORDERED: amLODIPine 5 MG TABLET PO SCH (13:30)
[2022-04-20] MEDS: DilTIAZem 50 MG/50 ML IV.SOLN IVC SCH ×2 (14:05→21:13)
[2022-04-20] MEDS ORDERED: Ondansetron 4 MG/2 ML VIAL IVP PRN (14:16)
[2022-04-20] MEDS ORDERED: Ketorolac 30 MG/ML VIAL IVP ONE (15:56)
[2022-04-20] MEDS: *HR* Rivaroxaban 10 MG TABLET PO SCH (16:06)
[2022-04-20] MEDS: MOM Conc 10 ML UD.LIQ PO SCH (16:36)
[2022-04-20 16:50] LABS: BUN/Creatinine Ratio 28 (6-26); Blood Urea Nitrogen 19 mg/dL (8-23); Calcium 9.4 mg/dL (8.6-10.3); Carbon Dioxide 25 mEq/L (23-29); Chloride 106 mEq/L (98-107); Glucose 76 mg/dL (70-105); Osmolality,Calculated 285 (280-300); Sodium 137 mEq/L (136-145)
[2022-04-20] MEDS: Dexmedetomidine HCl 400 MCG/100 ML MLS IVC SCH ×2 (17:07→23:37)
[2022-04-20] MEDS: DilTIAZem 50 MG in 0.9 % Sodium Chloride 40 ML IVC SCH (17:21)
[2022-04-20] MEDS: Acetaminophen 325 MG TABLET PO PRN (20:20)
[2022-04-21] MEDS: Insulin LISPRO 300 UNITS/3 ML VIAL SUBQ SCH ×5 (00:04→23:28)
[2022-04-21] MEDS ORDERED: *HR* HYDROcodone/Acet 5/325 mg TABLET PO ONE (01:00)
[2022-04-21] MEDS ORDERED: Ibuprofen 600 MG TABLET PO ONE (01:00)
[2022-04-21] MEDS: DilTIAZem 50 MG/50 ML IV.SOLN IVC SCH (01:09)
[2022-04-21] MEDS: Artificial Tears SOLN 15 ML BOTTLE BOTH EYES SCH ×6 (01:39→22:21)
[2022-04-21 02:53] LABS: Basophils % 0.3 %; Hematocrit 35.3 % (35.3-44.9); Hemoglobin 10.7 g/dL (11.5-15.4); Immature Granulocytes % 0.9 % (0-4); Lymphocytes % 11.1 %; Mean Corpuscular HGB Conc 30.3 g/dL (31.6-35.5); Mean Corpuscular Hemoglobin 27.6 pg (28.0-33.3); Mean Platelet Volume 9.6 fL (9.4-12.4); Monocytes # 0.4 K/mcL (0.0-1.3); Monocytes % 4.7 %; Neutrophils # 7.8 K/mcL (1.6-8.9); Platelet Count 276 K/mcL (140-400); Red Blood Count 3.88 M/mcL (3.82-4.97); Red Cell Distribution Width 15.9 % (11.5-14.5); White Blood Count 9.4 K/mcL (4.3-11.1)
[2022-04-21] MEDS: Ipratropium/Albuterol Neb 3 ML IH SCH ×7 (03:19→23:41)
[2022-04-21] MEDS: *HR* Metoprolol 5 MG/5 ML VIAL IVP SCH (04:51)
[2022-04-21 06:43] LABS: BUN/Creatinine Ratio 32 (6-26); Blood Urea Nitrogen 21 mg/dL (8-23); Carbon Dioxide 24 mEq/L (23-29); Chloride 105 mEq/L (98-107); Glucose 71 mg/dL (70-105); Osmolality,Calculated 285 (280-300); Potassium 3.4 mEq/L (3.5-5.1); Sodium 137 mEq/L (136-145)
[2022-04-21] MEDS: Chlorhexidine Rinse 15 ML MOUTHWASH MM SCH ×2 (07:28→19:27)
[2022-04-21] MEDS: Budesonide/Formoterol 160/4.5 1 PUFF INH IH SCH ×2 (07:41→20:50)
[2022-04-21] MEDS: MOM Conc 10 ML UD.LIQ PO SCH (08:35)
[2022-04-21] MEDS: Insulin DETEMIR 100 UNIT/ML X5UNITS SUBQ SCH (08:44)
[2022-04-21] MEDS: lisinopriL 20 MG TABLET PO SCH (08:44)
[2022-04-21] MEDS: Ibuprofen 400 MG TABLET PO PRN ×2 (09:41→16:06)
[2022-04-21] MEDS: cefTRIAXone 2,000 MG in 0.9 % Sodium Chloride Mini Bag 100 ML IVPB SCH (12:50)
[2022-04-21] MEDS: *HR* Rivaroxaban 10 MG TABLET PO SCH (16:12)
[2022-04-21] MEDS: Acetaminophen 325 MG TABLET PO PRN (19:36)
[2022-04-22] MEDS: Artificial Tears SOLN 15 ML BOTTLE BOTH EYES SCH (01:42)
[2022-04-22] MEDS: Ipratropium/Albuterol Neb 3 ML IH SCH ×6 (04:15→23:33)
[2022-04-22] MEDS ORDERED: D5% in Water 1,000 ML IVC PRN (05:11)
[2022-04-22] MEDS ORDERED: Dextrose Gel 15 GM/37.5 ML TUBE PO PRN ×2 (05:11)
[2022-04-22] MEDS ORDERED: *HR* Dextrose 50 % in Water (Syg) 50 ML SYRINGE IVP PRN (05:11)
[2022-04-22] MEDS ORDERED: Calcium Gluconate 1gm/50mL 1 GM/50 ML BAG IVPB PRN (05:11)
[2022-04-22] MEDS ORDERED: Naloxone 0.4 MG/ML INJ IVP PRN (05:11)
[2022-04-22] MEDS ORDERED: Potassium Chloride 40 MEQ/200 ML BAG IVPB PRN (05:11)
[2022-04-22] MEDS ORDERED: Simethicone 80 MG TAB.CHEW PO PRN (05:11)
[2022-04-22] MEDS ORDERED: Artificial Tears SOLN 15 ML BOTTLE BOTH EYES PRN (05:11)
[2022-04-22] MEDS ORDERED: Potassium Phosphate 44 MEQ in 0.9 % Sodium Chloride 250 ML IVPB PRN (05:11)
[2022-04-22 05:59] LABS: Hematocrit 38.8 % (35.3-44.9); Hemoglobin 11.9 g/dL (11.5-15.4); Mean Corpuscular HGB Conc 30.7 g/dL (31.6-35.5); Mean Corpuscular Hemoglobin 27.8 pg (28.0-33.3); Mean Corpuscular Volume 90.7 fL (83.0-100.0); Mean Platelet Volume 9.2 fL (9.4-12.4); Platelet Count 316 K/mcL (140-400); Red Blood Count 4.28 M/mcL (3.82-4.97); Red Cell Distribution Width 16.3 % (11.5-14.5); White Blood Count 7.2 K/mcL (4.3-11.1)
[2022-04-22] MEDS ORDERED: Ondansetron 4 MG/2 ML VIAL IVP PRN (06:00)
[2022-04-22] MEDS ORDERED: Insulin LISPRO 300 UNITS/3 ML VIAL SUBQ SCH (06:00)
[2022-04-22] MEDS ORDERED: Ibuprofen 400 MG TABLET PO PRN (06:00)
[2022-04-22 06:19] LABS: Albumin 2.5 g/dL (3.5-5.7); Albumin/Globulin Ratio 0.6 (1.1-2.2); Bilirubin,Total 0.4 mg/dL (0.3-1.0); Calcium 9.1 mg/dL (8.6-10.3); Globulin 4.4 g/dL (2.4-3.5); Potassium 3.5 mEq/L (3.5-5.1); Total Protein 6.9 g/dL (6.4-8.9)
[2022-04-22] MEDS: Budesonide/Formoterol 160/4.5 1 PUFF INH IH SCH ×2 (07:47→19:56)
[2022-04-22] MEDS ORDERED: Artificial Tears SOLN 15 ML BOTTLE BOTH EYES SCH (08:00)
[2022-04-22] MEDS: lisinopriL 20 MG TABLET PO SCH (08:18)
[2022-04-22] MEDS: MOM Conc 10 ML UD.LIQ PO SCH (08:25)
[2022-04-22] MEDS ORDERED: Chlorhexidine Rinse 15 ML MOUTHWASH MM SCH (09:00)
[2022-04-22] MEDS: Insulin DETEMIR 100 UNIT/ML X5UNITS SUBQ SCH (10:01)
[2022-04-22 10:04] LABS: Calcium 9.4 mg/dL (8.6-10.3); Potassium 3.6 mEq/L (3.5-5.1)
[2022-04-22] MEDS: cefTRIAXone 2,000 MG in 0.9 % Sodium Chloride Mini Bag 100 ML IVPB SCH (10:47)
[2022-04-22] MEDS: Nicotine 21 MG PATCH.TD24 TD SCH (12:15)
[2022-04-22] MEDS: Insulin LISPRO 300 UNITS/3 ML VIAL SUBQ SCH ×3 (12:31→20:47)
[2022-04-22] MEDS: *HR* Rivaroxaban 10 MG TABLET PO SCH (16:15)
[2022-04-22] MEDS: Acetaminophen 325 MG TABLET PO PRN (18:08)
[2022-04-22] MEDS ORDERED: Melatonin 3 MG TABLET PO ONE (20:57)
[2022-04-23] MEDS: Ipratropium/Albuterol Neb 3 ML IH SCH ×6 (03:18→23:21)
[2022-04-23] MEDS: Acetaminophen 325 MG TABLET PO PRN ×2 (06:19→13:00)
[2022-04-23] MEDS: Budesonide/Formoterol 160/4.5 1 PUFF INH IH SCH ×2 (07:13→20:00)
[2022-04-23] MEDS: Insulin DETEMIR 100 UNIT/ML X5UNITS SUBQ SCH (08:07)
[2022-04-23] MEDS: Nicotine 21 MG PATCH.TD24 TD SCH (08:08)
[2022-04-23] MEDS: MOM Conc 10 ML UD.LIQ PO SCH ×2 (08:08→09:00)
[2022-04-23] MEDS: lisinopriL 20 MG TABLET PO SCH (08:08)
[2022-04-23] MEDS: Insulin LISPRO 300 UNITS/3 ML VIAL SUBQ SCH ×4 (09:00→22:16)
[2022-04-23] MEDS: cefTRIAXone 2,000 MG in 0.9 % Sodium Chloride Mini Bag 100 ML IVPB SCH (11:06)
[2022-04-23] MEDS: Ibuprofen 800 MG TABLET PO PRN ×2 (11:33→23:36)
[2022-04-23] MEDS: *HR* Rivaroxaban 10 MG TABLET PO SCH (18:21)
[2022-04-24] MEDS: Melatonin 3 MG TABLET PO PRN ×2 (00:32→19:31)
[2022-04-24 03:46] LABS: Basophils % 0.2 %; Hematocrit 30.4 % (35.3-44.9); Immature Granulocytes % 0.4 % (0-4); Lymphocytes # 1.1 K/mcL (0.6-4.6); Lymphocytes % 19.1 %; Mean Corpuscular HGB Conc 30.6 g/dL (31.6-35.5); Mean Corpuscular Hemoglobin 27.7 pg (28.0-33.3); Mean Corpuscular Volume 90.5 fL (83.0-100.0); Mean Platelet Volume 9.5 fL (9.4-12.4); Monocytes # 0.4 K/mcL (0.0-1.3); Monocytes % 7.8 %; Neutrophils # 4.1 K/mcL (1.6-8.9); Platelet Count 334 K/mcL (140-400); Red Blood Count 3.36 M/mcL (3.82-4.97); Red Cell Distribution Width 16.4 % (11.5-14.5); Segmented Neutrophils % 72.5 %; White Blood Count 5.7 K/mcL (4.3-11.1)
[2022-04-24 03:49] LABS: Hemoglobin 9.3 g/dL (11.5-15.4)
[2022-04-24] MEDS: Ipratropium/Albuterol Neb 3 ML IH SCH ×6 (04:02→23:55)
[2022-04-24 04:06] LABS: Calcium 8.6 mg/dL (8.6-10.3); Magnesium 1.6 mg/dL (1.6-2.6); Potassium 3.5 mEq/L (3.5-5.1)
[2022-04-24] MEDS: Budesonide/Formoterol 160/4.5 1 PUFF INH IH SCH ×2 (07:30→20:09)
[2022-04-24] MEDS: Insulin LISPRO 300 UNITS/3 ML VIAL SUBQ SCH ×4 (09:01→21:32)
[2022-04-24] MEDS: lisinopriL 20 MG TABLET PO SCH (09:06)
[2022-04-24] MEDS: Nicotine 21 MG PATCH.TD24 TD SCH (09:07)
[2022-04-24] MEDS: MOM Conc 10 ML UD.LIQ PO SCH (09:08)
[2022-04-24] MEDS: Ibuprofen 800 MG TABLET PO PRN (09:13)
[2022-04-24] MEDS: Insulin DETEMIR 100 UNIT/ML X5UNITS SUBQ SCH (09:15)
[2022-04-24] MEDS: Acetaminophen 325 MG TABLET PO PRN ×2 (12:36→23:21)
[2022-04-24] MEDS: *HR* Rivaroxaban 10 MG TABLET PO SCH (16:39)
[2022-04-24] MEDS: hydrALAZINE 25 MG TABLET PO SCH ×2 (16:40→23:22)
[2022-04-24 17:50] LABS: Influenza A PCR Negative (Negative); Influenza B PCR Negative (Negative); Resp. Syncytial Virus PCR Negative (Negative)
[2022-04-24 17:55] LABS: SARS-CoV-2 by PCR (In House) Negative (Negative)
[2022-04-25] MEDS: Ipratropium/Albuterol Neb 3 ML IH SCH ×4 (04:32→13:11)
[2022-04-25] MEDS: Ibuprofen 800 MG TABLET PO PRN ×2 (04:35→11:40)
[2022-04-25] MEDS: Acetaminophen 325 MG TABLET PO PRN (07:01)
[2022-04-25] MEDS: Budesonide/Formoterol 160/4.5 1 PUFF INH IH SCH (07:34)
[2022-04-25] MEDS: hydrALAZINE 25 MG TABLET PO SCH (09:05)
[2022-04-25] MEDS: lisinopriL 20 MG TABLET PO SCH (09:06)
[2022-04-25] MEDS: Nicotine 21 MG PATCH.TD24 TD SCH (09:06)
[2022-04-25] MEDS: Insulin LISPRO 300 UNITS/3 ML VIAL SUBQ SCH ×2 (09:12→11:45)
[2022-04-25] MEDS: Insulin DETEMIR 100 UNIT/ML X5UNITS SUBQ SCH (11:42)
[2022-04-25] MEDS: MOM Conc 10 ML UD.LIQ PO SCH (11:46)
[2022-04-25 14:21] LABS: Basophils % 0.4 %; Hematocrit 33.1 % (35.3-44.9); Hemoglobin 10.2 g/dL (11.5-15.4); Immature Granulocytes % 0.2 % (0-4); Lymphocytes # 0.9 K/mcL (0.6-4.6); Lymphocytes % 17.2 %; Mean Corpuscular HGB Conc 30.8 g/dL (31.6-35.5); Mean Corpuscular Volume 90.9 fL (83.0-100.0); Mean Platelet Volume 9.7 fL (9.4-12.4); Monocytes # 0.3 K/mcL (0.0-1.3); Monocytes % 6.1 %; Neutrophils # 4.1 K/mcL (1.6-8.9); Platelet Count 347 K/mcL (140-400); Red Blood Count 3.64 M/mcL (3.82-4.97); Red Cell Distribution Width 16.2 % (11.5-14.5); Segmented Neutrophils % 76.1 %; White Blood Count 5.4 K/mcL (4.3-11.1)
[2022-04-25 15:22] VITALS: BP 171/97; PULSE 95; TEMP 97.6; O2SAT 96
[2022-04-25 16:26] LABS: BUN/Creatinine Ratio 44 (6-26); Blood Urea Nitrogen 28 mg/dL (8-23); Calcium 9.1 mg/dL (8.6-10.3); Carbon Dioxide 21 mEq/L (23-29); Chloride 108 mEq/L (98-107); Glucose 93 mg/dL (70-105); Magnesium 1.6 mg/dL (1.6-2.6); Osmolality,Calculated 285 (280-300); Potassium 3.3 mEq/L (3.5-5.1); Sodium 135 mEq/L (136-145)
== END 2022-04-25 16:06 | DRG 720 ==
LOC: EMEROOARM 19:44 → ICNU 19:44 → 3ANU 04-23 18:10
PROVIDERS: ADMIT Internal Medicine; ATTEND Internal Medicine